=== PATIENT | male | born 1970 | race Caucasian/White ===

== ENCOUNTER 2019-01-25 00:59 | Inpatient (IN) | payer OTHER ==
[~2019-01-25] VITALS: Ht 172.7 cm; Wt 108.9 kg
[~2019-01-25 00:59] MED LIST: Lasix40 MG PO; OXYACE5T PO; Pedi-Dri 100,0060 GM TOP
[2019-01-25 03:08] LABS: BASOPHILS ABSOLUTE AUTO 0.05 K/mm3 (0.00-0.23); BASOPHILS PERCENT AUTO 0 % (0-2); EOSINOPHILS ABSOLUTE AUTO 0.06 K/mm3 (0.00-0.68); EOSINOPHILS PERCENT AUTO 0 % (0-6); Hematocrit 45.4 % (37.0-53.0); Hemoglobin 14.6 g/dL (13.5-17.5); IMMATURE GRAN ABSOLUTE AUTO 0.05 K/mm3 (0.00-0.10); IMMATURE GRAN PERCENT AUTO 0 % (0-1); LYMPHOCYTES ABSOLUTE AUTO 1.18 K/mm3 (0.84-5.20); LYMPHOCYTES PERCENT AUTO 8 % (21-46); MONOCYTES ABSOLUTE AUTO 1.22 K/mm3 (0.16-1.47); MONOCYTES PERCENT AUTO 8 % (4-13); Mean Corpuscular HGB 27.8 pg (26.0-34.0); Mean Corpuscular HGB Conc 32.2 g/dL (31.5-36.5); Mean Corpuscular Volume 87 fL (80-100); Mean Platelet Volume 10.6 fL (9.1-12.4); NEUTROPHILS ABSOLUTE AUTO 13.23 K/mm3 (1.96-9.15); NEUTROPHILS PERCENT AUTO 84 % (41-73); Platelet Count 444 K/mm3 (150-400); RDW Coefficient Variation 16.4 % (11.7-14.2); RDW Standard Deviation 51.1 fL (35.1-46.3); Red Blood Cell Count 5.25 M/mm3 (4.30-5.90); White Blood Cell Count 15.79 K/mm3 (4.00-11.30)
[2019-01-25 03:26] LABS: Albumin/Globulin Ratio 0.2 (0.8-1.8); Bilirubin, Total 0.2 mg/dL (0.1-1.0); Bun/Creatinine Ratio 14.6 (12.0-20.0); Calcium, Blood 7.8 mg/dL (8.5-10.1); Creatinine, Blood 4.19 mg/dL (0.60-1.20); Globulin, Blood 4.5 g/dL (2.2-4.0); Potassium, Blood 2.8 mmol/L (3.5-5.5); Total Protein, Blood 5.5 g/dL (6.4-8.2)
[2019-01-25 03:59] LABS: Source, Urine Voided
[2019-01-25 04:01] LABS: Bilirubin, Urine Neg (Neg); Blood, Urine 5+ (Neg); Glucose Qualitative, Urine 2+ (Neg); Ketones, Urine 3+ (Neg); Leukocyte Esterase, Urine Neg (Neg); Nitrite, Urine Neg (Neg); Protein, Urine 4+ (Neg); Specific Gravity, Urine 1.015 (1.003-1.022); Urobilinogen, Urine NORM (Normal)
[2019-01-25 04:11] LABS: Amorphous Mod (0-Heavy); Appearance, Urine Hazy (Clear); Bacteria Rare /hpf; Color, Urine Yellow (P-Yellow); Squamous Epithelial Cells Few /hpf (Few)
[2019-01-25 11:17] LABS: CPK Creatine Kinase 751 U/L (39-308); Troponin I <0.015 ng/mL (0.000-0.040); Uric Acid, Blood 8.9 mg/dL (3.5-7.2)
[2019-01-25 11:33] LABS: Creatine Kinase MB Index 2.4 (0.0-4.0)
--- NOTE | 2019-01-25 11:34 | NUR ---
ECHOCARDIOGRAM COMPLETED
[2019-01-25] MEDS ORDERED: FURO40 PO (12:41)
[2019-01-25] MEDS ORDERED: Pedi-Dri 100,0060 GM TOP (12:41)
--- NOTE | 2019-01-25 16:21 | NUR ---
PT ADMITTED TO ROOM 324 AT 1600 FROM ED. PT AMBULATED SBA TO STRETCHER. HAS ROSAS CATHITER. TOLERATING FLUIDS. GROSS BODY EDEMA +3. ORIENTED TO ROOM SET UP AND SAFETY. RENAL U.S. PERFORMED SOON AFTER PT ARRIVED TO ROOM.
[2019-01-25 19:05] LABS: Bun/Creatinine Ratio 15.2 (12.0-20.0); Calcium, Blood 7.6 mg/dL (8.5-10.1); Creatinine, Blood 4.09 mg/dL (0.60-1.20); Potassium, Blood 3.1 mmol/L (3.5-5.5)
--- NOTE | 2019-01-25 19:48 | NUR ---
SUMMARY- PT A/O IN BED THIS SHIFT SINCE ADMIT FROM ED. DENIES PAIN ANYWHERE. EXCEPT SORE GROIN FORM YEASTY RASH. CLEANSED AREA AND APPLIED NYSTATIN POWDER. PT TOLERATED DINNER AND TAKING IN PO FLUIDS WITHOUT TROUBLE. ROSAS PATENT, DRAINING CLEAR YELLOW. STARTED 24HR UUN 1600. IVF INFUSING. RENAL U.S. COMPLETED AT BEDSIDE. VSS. RERORTED ALL TO [facility].
--- NOTE | 2019-01-26 04:47 | NUR ---
SHIFT SUMMARY PT HAD SLEEP STUDY TONIGHT PER RT, SLEPT OFF/ON THROUGH THE NIGHT. ON RA. ANASARCA, 3+ EDEMA T/O. SCROTAL SWELLING NOTED WELL. 24-HR URINE COLLECTION IN PROGRESS -- START 01/25 @ 1600, END 01/26 @ 1600. ROSAS CATH IN PLACE DRAINING CLEAR YELLOW URINE; BAG ON ICE. NS c 20 MEQ K+ INFUSING OVERNIGHT; 1L BAG COMPLETE THIS AM. PT DENIES ANY PAIN, DISCOMFORT, ANXIETY, N/V. WILL CONT TO MONITOR AND PROVIDE CARE UNTIL PRESUMED BY ONCOMING RN.
[2019-01-26 05:46] LABS: BASOPHILS ABSOLUTE AUTO 0.06 K/mm3 (0.00-0.23); BASOPHILS PERCENT AUTO 1 % (0-2); EOSINOPHILS ABSOLUTE AUTO 0.47 K/mm3 (0.00-0.68); EOSINOPHILS PERCENT AUTO 4 % (0-6); Hematocrit 40.7 % (37.0-53.0); Hemoglobin 12.9 g/dL (13.5-17.5); IMMATURE GRAN ABSOLUTE AUTO 0.04 K/mm3 (0.00-0.10); IMMATURE GRAN PERCENT AUTO 0 % (0-1); LYMPHOCYTES ABSOLUTE AUTO 2.51 K/mm3 (0.84-5.20); LYMPHOCYTES PERCENT AUTO 20 % (21-46); MONOCYTES ABSOLUTE AUTO 1.24 K/mm3 (0.16-1.47); MONOCYTES PERCENT AUTO 10 % (4-13); Mean Corpuscular HGB 27.3 pg (26.0-34.0); Mean Corpuscular HGB Conc 31.7 g/dL (31.5-36.5); Mean Corpuscular Volume 86 fL (80-100); Mean Platelet Volume 10.6 fL (9.1-12.4); NEUTROPHILS ABSOLUTE AUTO 8.24 K/mm3 (1.96-9.15); NEUTROPHILS PERCENT AUTO 66 % (41-73); Platelet Count 398 K/mm3 (150-400); RDW Coefficient Variation 16.5 % (11.7-14.2); RDW Standard Deviation 51.5 fL (35.1-46.3); Red Blood Cell Count 4.73 M/mm3 (4.30-5.90); White Blood Cell Count 12.56 K/mm3 (4.00-11.30)
[2019-01-26 06:11] LABS: Albumin, Blood 0.9 g/dL (3.4-5.0); Anion Gap 12 mmol/L (6-16); Blood Urea Nitrogen 62 mg/dL (8-24); Bun/Creatinine Ratio 15.7 (12.0-20.0); CO2, Blood 19 mmol/L (21-32); Calcium, Blood 7.6 mg/dL (8.5-10.1); Chloride, Blood 112 mmol/L (98-108); Creatinine, Blood 3.96 mg/dL (0.60-1.20); Glomerular Filtration Rate 17 (60-); Glucose, Blood 81 mg/dL (70-99); Potassium, Blood 3.2 mmol/L (3.5-5.5); Sodium, Blood 143 mmol/L (136-145); Troponin I 0.016 ng/mL (0.000-0.040)
[2019-01-26 06:20] LABS: Phosphorus, Blood 8.2 mg/dL (2.5-4.9)
[2019-01-26 12:14] LABS: Antinuclear Antibody Screen Negative (Negative)
[2019-01-26 17:13] LABS: Protein, Urine Quantitative 1050.2 mg/dL (0.0-11.9)
[2019-01-26 17:51] LABS: Eosinophils-Raw #,Urine 0; White Blood Cells Urine 25-50 /hpf (0-5)
--- NOTE | 2019-01-26 17:51 | NUR ---
SHIFT SUMMARY PT CONTINUES TO HAVE SWELLING THROUGH OUT BODY. ROSAS PATENT AND DRAINING. 24 HOUR URINE FINISHED AT 1600 AND WAS SENT TO LAB. PT HAS HAD NO COMPLAINTS OF PAIN. APPETITE HAS BEEN GOOD, WITH PT EATING ALL OF MEALS. DR. LIPSCOMB COVERING FOR DR. MANSFIELD. NO ACUTE CHANGES THIS SHIFT. CALL LIGHT IN REACH. WILL CONTINUE TO MONITOR AND REPORT TO ONCOMING RN.
--- NOTE | 2019-01-27 04:43 | NUR ---
SHIFT SUMMARY NO ACUTE CHANGES OVERNIGHT. PT WITH GENERALIZED EDEMA T/O BODY, 3+. R ARM IS MORE SWOLLEN THAN LEFT. NO REDNESS OR PAIN NOTED TO R ARM. SCROTUM ALSO SWOLLEN, IN PILLOWCASE SLING FOR COMFORT. PT REPORTS FEELING A LITTLE BIT LESS EDEMATOUS THIS EVENING C/T YESTERDAY EVENING. ROSAS CATH IN PLACE FOR STRICT I/O, PATENT AND DRAINING CLEAR YELLOW URINE. VSS. PT DENIES ANY PAIN, DISCOMFORT, N/V. WILL CONT TO MONITOR AND PROVIDE CARE UNTIL PRESUMED BY ONCOMING RN.
[2019-01-27 04:52] LABS: BASOPHILS ABSOLUTE AUTO 0.06 K/mm3 (0.00-0.23); BASOPHILS PERCENT AUTO 1 % (0-2); EOSINOPHILS ABSOLUTE AUTO 0.58 K/mm3 (0.00-0.68); EOSINOPHILS PERCENT AUTO 5 % (0-6); Hemoglobin 12.3 g/dL (13.5-17.5); IMMATURE GRAN ABSOLUTE AUTO 0.05 K/mm3 (0.00-0.10); IMMATURE GRAN PERCENT AUTO 0 % (0-1); LYMPHOCYTES ABSOLUTE AUTO 2.27 K/mm3 (0.84-5.20); LYMPHOCYTES PERCENT AUTO 20 % (21-46); MONOCYTES PERCENT AUTO 11 % (4-13); Mean Corpuscular HGB Conc 31.5 g/dL (31.5-36.5); NEUTROPHILS ABSOLUTE AUTO 7.23 K/mm3 (1.96-9.15); NEUTROPHILS PERCENT AUTO 64 % (41-73); Platelet Count 376 K/mm3 (150-400); RDW Coefficient Variation 16.2 % (11.7-14.2); RDW Standard Deviation 53.2 fL (35.1-46.3); Red Blood Cell Count 4.39 M/mm3 (4.30-5.90); White Blood Cell Count 11.39 K/mm3 (4.00-11.30)
[2019-01-27 04:53] LABS: Mean Corpuscular Volume 89 fL (80-100)
[2019-01-27 05:07] LABS: Albumin, Blood 0.8 g/dL (3.4-5.0); Anion Gap 10 mmol/L (6-16); Blood Urea Nitrogen 57 mg/dL (8-24); Bun/Creatinine Ratio 15.8 (12.0-20.0); CO2, Blood 19 mmol/L (21-32); Calcium, Blood 7.6 mg/dL (8.5-10.1); Chloride, Blood 113 mmol/L (98-108); Glomerular Filtration Rate 19 (60-); Glucose, Blood 84 mg/dL (70-99); Phosphorus, Blood 6.6 mg/dL (2.5-4.9); Potassium, Blood 3.3 mmol/L (3.5-5.5); Sodium, Blood 142 mmol/L (136-145)
[2019-01-27 10:07] LABS: COMPLEMENT C3, SERUM 165 mg/dL (82-167); COMPLEMENT C4, SERUM 43 mg/dL (14-44)
--- NOTE | 2019-01-27 15:24 | NUR ---
Jose was alone in room and welcoming of spiritual direction and prayer. He admits he is worried about his kidneys. He blames himself for continuing with a diet that was against physician recomendations. He is very grateful for conversation and companionship. Provided evp general counsel towards self-forgiveness and a deeper awareness of God's boundless love for him. We prayed together at conclusion of visit for healing and strength. I will remain available to Jose.
--- NOTE | 2019-01-27 18:44 | NUR ---
SHIFT SUMMARY ROSAS IN PLACE. IV LASIX ORDERED. RENAL MASS FOUND. FUTURE PLAN IS FOR OUTPT BIOPSY FOLLOWING A UROLOGY CONSULT WHEN RENAL FUNCTION IMPROVES. SCROTAL EDEMA PRESENT. SOME COGNITIVE DELAY PRESENT, HOWEVER PT CAN EXPRESS NEEDS PERFECTLY. DR LIPSCOMB IS CONSULT. 1500 ML FLUID RESTRICTION STARTED TODAY. ELEVATE LEGS. SCD'S IN PLACE TRACY HOSE WERE UNABLE TO BE FITTED.
--- NOTE | 2019-01-27 20:28 | NUR ---
FLUID RESTRICTION OF 1500 ML MET UNTIL O600. PT AWARE.
[2019-01-28 05:20] LABS: BASOPHILS ABSOLUTE AUTO 0.07 K/mm3 (0.00-0.23); BASOPHILS PERCENT AUTO 1 % (0-2); EOSINOPHILS PERCENT AUTO 5 % (0-6); Hematocrit 39.1 % (37.0-53.0); Hemoglobin 12.1 g/dL (13.5-17.5); IMMATURE GRAN ABSOLUTE AUTO 0.04 K/mm3 (0.00-0.10); IMMATURE GRAN PERCENT AUTO 0 % (0-1); LYMPHOCYTES ABSOLUTE AUTO 2.51 K/mm3 (0.84-5.20); LYMPHOCYTES PERCENT AUTO 18 % (21-46); MONOCYTES ABSOLUTE AUTO 1.26 K/mm3 (0.16-1.47); MONOCYTES PERCENT AUTO 9 % (4-13); Mean Corpuscular HGB 27.3 pg (26.0-34.0); Mean Corpuscular HGB Conc 30.9 g/dL (31.5-36.5); Mean Corpuscular Volume 88 fL (80-100); Mean Platelet Volume 11.4 fL (9.1-12.4); NEUTROPHILS ABSOLUTE AUTO 9.24 K/mm3 (1.96-9.15); NEUTROPHILS PERCENT AUTO 67 % (41-73); Platelet Count 349 K/mm3 (150-400); RDW Coefficient Variation 16.4 % (11.7-14.2); Red Blood Cell Count 4.44 M/mm3 (4.30-5.90); White Blood Cell Count 13.82 K/mm3 (4.00-11.30)
[2019-01-28 05:45] LABS: Albumin, Blood 0.8 g/dL (3.4-5.0); Anion Gap 8 mmol/L (6-16); Blood Urea Nitrogen 53 mg/dL (8-24); Bun/Creatinine Ratio 16.5 (12.0-20.0); CO2, Blood 20 mmol/L (21-32); Calcium, Blood 7.8 mg/dL (8.5-10.1); Chloride, Blood 114 mmol/L (98-108); Creatinine, Blood 3.21 mg/dL (0.60-1.20); Glomerular Filtration Rate 22 (60-); Glucose, Blood 82 mg/dL (70-99); Magnesium, Blood 1.7 mg/dL (1.6-2.4); Phosphorus, Blood 5.6 mg/dL (2.5-4.9); Potassium, Blood 3.8 mmol/L (3.5-5.5); Sodium, Blood 142 mmol/L (136-145)
--- NOTE | 2019-01-28 05:45 | NUR ---
SHIFT SUMMARY PT WITH NO ACUTE CHANGES OVERNIGHT. SLEPT WELL THROUGH THE NIGHT. C/O OF L KNEE PAIN THAT WAS MANAGED WITH REPOSITIONING. 1500 ML FR MET, RESTARTS AT 0600. PT COMPLIANT AND UNDERSTANDING OF FR. RESP E/U ON RA. ORAL K+ SUPPLEMENTS DISSOLVED IN APPLESAUCE FOR PT COMFORT. ROSAS CATH IN PLACE FOR STRICT I/Os, PATENT AND DRAINING CLEAR YELLOW URINE. WILL CONT TO MONITOR AND PROVIDE CARE UNTIL PRESUMED BY ONCOMING RN.
[2019-01-28 14:07] LABS: ATYPICAL PANCA <1:20 titer (Neg:<1:20); CYTOPLASMIC (C-ANCA) <1:20 titer (Neg:<1:20); PERINUCLEAR (P-ANCA) <1:20 titer (Neg:<1:20)
[2019-01-28 15:07] LABS: A/G RATIO 0.5 (0.7-1.7); ALBUMIN 1.2 g/dL (2.9-4.4); ALPHA-1-GLOBULIN 0.2 g/dL (0.0-0.4); ALPHA-2-GLOBULIN 1.3 g/dL (0.4-1.0); BETA GLOBULIN 0.6 g/dL (0.7-1.3); GAMMA GLOBULIN 0.4 g/dL (0.4-1.8); GLOBULIN, TOTAL 2.5 g/dL (2.2-3.9); IMMUNOGLOBULIN A, QN, SERUM 157 mg/dL (90-386); IMMUNOGLOBULIN G, QN, SERUM 279 mg/dL (700-1600); IMMUNOGLOBULIN M, QN, SERUM 44 mg/dL (20-172); M-SPIKE Not Observed g/dL (Not Observed); PROTEIN, TOTAL, SERUM 3.7 g/dL (6.0-8.5)
--- NOTE | 2019-01-28 18:13 | NUR ---
PT A/O THROUGHOUT THIS SHIFT. PT UP TO BEDSIDE COMODE 2X THIS SHIFT, 2 PERSON ASSIST REQUIRED. PT COOPERATIVE WITH CARE. PT STATES NO ADDITIONAL NEEDS. WILL CONTINUE TO MONITOR.
--- NOTE | 2019-01-28 18:43 | NUR ---
Provided companionship and prayer for Jose this afternoon. He appeared to enjoy telling me stories from his childhood and sharyn sharing. I will remain available.
--- NOTE | 2019-01-29 05:00 | NUR ---
SHIFT SUMMARY NO ACUTE EVENTS OVERNIGHT. PT TO HAVE MRI W/O CONTRAST TODAY, MRI FORM SENT. 1.5 L FR MAINTAINED. ROSAS IN PLACE FOR STRICT I/O, DRAINING CLEAR YELLOW URINE. DENIES PAIN. BLE ELEVATED. SWELLING HAS IMPROVED SLOWLY OVER THE LAST FEW DAYS. WILL CONT TO MONITOR AND PROVIDE CARE UNTIL PRESUMED BY ONCCOMING RN.
[2019-01-29 05:28] LABS: Hematocrit 41.3 % (37.0-53.0); Hemoglobin 13.3 g/dL (13.5-17.5)
[2019-01-29 05:48] LABS: Albumin, Blood 0.9 g/dL (3.4-5.0); Anion Gap 10 mmol/L (6-16); Blood Urea Nitrogen 50 mg/dL (8-24); Bun/Creatinine Ratio 16.9 (12.0-20.0); CO2, Blood 19 mmol/L (21-32); Chloride, Blood 115 mmol/L (98-108); Creatinine, Blood 2.95 mg/dL (0.60-1.20); Glomerular Filtration Rate 24 (60-); Glucose, Blood 80 mg/dL (70-99); Magnesium, Blood 1.7 mg/dL (1.6-2.4); Potassium, Blood 4.7 mmol/L (3.5-5.5); Sodium, Blood 144 mmol/L (136-145)
[2019-01-29 13:08] LABS: ANTI-DSDNA ANTIBODIES <1 IU/mL (0-9); RNP ANTIBODIES <0.2 AI (0.0-0.9); SJOGREN'S ANTI-SS-A <0.2 AI (0.0-0.9); SJOGREN'S ANTI-SS-B <0.2 AI (0.0-0.9); SMITH ANTIBODIES <0.2 AI (0.0-0.9)
--- NOTE | 2019-01-29 18:40 | NUR ---
SHIFT SUMMARY NO ACUTE CHANGES THIS SHIFT. PT WAS UNABLE TO HAVE MRI DONE THIS SHIFT DUE TO NOT BEING ABLE TO FIT IN MRI MACHINE. NO COMPLAINTS OF PAIN. ROSAS PATENT AND DRAINING. PT CONTINUES TO HAVE SWELLING THROUGH OUT BODY AND SCROTUM. PT HAS HAD GOOD APPETITE. NO REQUESTS AT THIS TIME. CALL LIGHT IN REACH. WILL CONTINUE TO MONITOR AND REPORT TO ONCOMING RN.
--- NOTE | 2019-01-30 04:56 | NUR ---
SHIFT SUMMARY: 48 Y/O MALE, 1 PERSON ASSIST TO BSC. SLEPT MOST OF THE NIGHT WITH LITTLE COMPLAINTS OR CONCERNS. HE TOOK HIS MEDS PRESCRIBED. SWELLING HAS REMAINED THE SAME THROUGHOUT THE BODY. HE HAS DENIED PAIN OR DISCOMFORT. IV HAS REMAINED PATENT. NO ACUTE CHANGES TO NOTE OR REPORT. WILL REPORT TO DAY SHIFT RN.
[2019-01-30 05:18] LABS: Hematocrit 43.2 % (37.0-53.0)
[2019-01-30 05:50] LABS: Magnesium, Blood 1.6 mg/dL (1.6-2.4)
[2019-01-30 05:52] LABS: Albumin, Blood 0.8 g/dL (3.4-5.0); Anion Gap 6 mmol/L (6-16); Blood Urea Nitrogen 47 mg/dL (8-24); Bun/Creatinine Ratio 16.7 (12.0-20.0); CO2, Blood 20 mmol/L (21-32); Calcium, Blood 8.2 mg/dL (8.5-10.1); Chloride, Blood 118 mmol/L (98-108); Creatinine, Blood 2.82 mg/dL (0.60-1.20); Glomerular Filtration Rate 25 (60-); Glucose, Blood 81 mg/dL (70-99); Phosphorus, Blood 4.7 mg/dL (2.5-4.9); Potassium, Blood 4.5 mmol/L (3.5-5.5); Sodium, Blood 144 mmol/L (136-145)
[2019-01-30 10:45] LABS: Prothrombin Time Results 10.6 Sec (9.7-11.5)
--- NOTE | 2019-01-30 18:40 | NUR ---
SHIFT SUMMARY NO ACUTE CONCERNS HE IS PLEASANT. ONE PERSON ASSIST LONG HE IS APPROPRIATE. HE HAS BEEN APPROPRIATE WITH ME ALL DAY. NO CONCERNS FROM THE PATIENT AND HE STATES HE IS GETTING MUCH BETTER. WE ARE AWAITING A BIOPSY ON SATURDAY.
[2019-01-31 05:10] LABS: BASOPHILS ABSOLUTE AUTO 0.07 K/mm3 (0.00-0.23); BASOPHILS PERCENT AUTO 1 % (0-2); EOSINOPHILS ABSOLUTE AUTO 0.73 K/mm3 (0.00-0.68); EOSINOPHILS PERCENT AUTO 7 % (0-6); Hematocrit 42.6 % (37.0-53.0); Hemoglobin 12.8 g/dL (13.5-17.5); IMMATURE GRAN ABSOLUTE AUTO 0.06 K/mm3 (0.00-0.10); IMMATURE GRAN PERCENT AUTO 1 % (0-1); LYMPHOCYTES ABSOLUTE AUTO 1.82 K/mm3 (0.84-5.20); LYMPHOCYTES PERCENT AUTO 17 % (21-46); MONOCYTES ABSOLUTE AUTO 1.29 K/mm3 (0.16-1.47); MONOCYTES PERCENT AUTO 12 % (4-13); Mean Corpuscular HGB 27.4 pg (26.0-34.0); Mean Platelet Volume 11.1 fL (9.1-12.4); NEUTROPHILS ABSOLUTE AUTO 7.03 K/mm3 (1.96-9.15); NEUTROPHILS PERCENT AUTO 64 % (41-73); Platelet Count 354 K/mm3 (150-400); RDW Coefficient Variation 16.9 % (11.7-14.2); RDW Standard Deviation 56.3 fL (35.1-46.3); Red Blood Cell Count 4.68 M/mm3 (4.30-5.90)
[2019-01-31 05:14] LABS: Mean Corpuscular Volume 91 fL (80-100)
[2019-01-31 05:35] LABS: Magnesium, Blood 1.7 mg/dL (1.6-2.4)
[2019-01-31 05:36] LABS: Albumin, Blood 0.8 g/dL (3.4-5.0); Anion Gap 5 mmol/L (6-16); Blood Urea Nitrogen 43 mg/dL (8-24); Bun/Creatinine Ratio 15.5 (12.0-20.0); CO2, Blood 20 mmol/L (21-32); Calcium, Blood 8.2 mg/dL (8.5-10.1); Chloride, Blood 120 mmol/L (98-108); Creatinine, Blood 2.78 mg/dL (0.60-1.20); Glomerular Filtration Rate 26 (60-); Glucose, Blood 90 mg/dL (70-99); Phosphorus, Blood 4.4 mg/dL (2.5-4.9); Sodium, Blood 145 mmol/L (136-145)
--- NOTE | 2019-01-31 05:49 | NUR ---
SHIFT SUMMARY: 48 Y/O MALE HERE FOR ANASARCA. HAS HAD A DECREASE IN OVERALL EDEMA. HE STATES HE FEELS HE IS GETTING BETTER. HE SLEPT THROUGHOUT THE NIGHT TILL LAB WOKE HIM UP. HE DENIED ANY PAIN OR DISCOMFORT THIS SHIFT. NO ACUTE CHANGES OCCURRED THIS SHIFT. WILL REPORT TO DAY SHIFT RN.
--- NOTE | 2019-01-31 18:24 | NUR ---
SHIFT SUMMARY PATIENT IS ALERT AND ORIENTED AND VERY PLEASANT. HAS BEEN MOVING AROUND ALMOST INDEPENDENTLY. HE HAS NO CURRENT CONCERNS MINUS HIS CURRENT SCROTAL SWELLING.
[2019-02-01 05:00] LABS: Hematocrit 43.1 % (37.0-53.0); Hemoglobin 12.7 g/dL (13.5-17.5)
[2019-02-01 05:19] LABS: Albumin, Blood 0.8 g/dL (3.4-5.0); Anion Gap 5 mmol/L (6-16); Blood Urea Nitrogen 43 mg/dL (8-24); Bun/Creatinine Ratio 16.3 (12.0-20.0); CO2, Blood 20 mmol/L (21-32); Calcium, Blood 8.3 mg/dL (8.5-10.1); Chloride, Blood 119 mmol/L (98-108); Creatinine, Blood 2.63 mg/dL (0.60-1.20); Glomerular Filtration Rate 28 (60-); Glucose, Blood 101 mg/dL (70-99); Magnesium, Blood 1.7 mg/dL (1.6-2.4); Phosphorus, Blood 4.4 mg/dL (2.5-4.9); Sodium, Blood 144 mmol/L (136-145)
--- NOTE | 2019-02-01 05:45 | NUR ---
SHIFT SUMMARY NO ASSESSMENT CHANGES. DENIES SOB, PAIN, AND NAUSEA. WITHIN FLUID RESTRICTION. EDEMA REMAINS UNCHANGED OVERNIGHT. ROSAS CLEAR YELLOW. VSS. PLAN IS RENAL BIOPSY SATURDAY.
--- NOTE | 2019-02-01 17:55 | NUR ---
SHIFT SUMMARY NO ACUTE CONCERNS AT THIS TIME. PATIENT IS ALERT AND ORIENTED AND CAN WALK WITH STANDBY ASSIST. CURRENTLY HE IS ABLE TO BE UP IN THE CHAIR FOR MEALS AND HAS NO CURRENT CONCERNS. HE GOES FOR A RENAL BIOPSY TOMORROW. HE IS TO BE NPO AT MIDNIGHT AND TO HAVE HIS SATURDAY MORNING DOSE OF HEPARIN HELD. PATIENT IS AWARE OF THIS AND IS VERY PLEASANT ABOUT IT.
[2019-02-02 05:05] LABS: Hematocrit 44.6 % (37.0-53.0); Hemoglobin 13.3 g/dL (13.5-17.5)
[2019-02-02 05:20] LABS: International Normalized Ratio 0.97; Prothrombin Time Results 10.3 Sec (9.7-11.5)
[2019-02-02 05:26] LABS: Magnesium, Blood 1.8 mg/dL (1.6-2.4)
[2019-02-02 05:27] LABS: Albumin, Blood 0.9 g/dL (3.4-5.0); Anion Gap 5 mmol/L (6-16); Blood Urea Nitrogen 43 mg/dL (8-24); CO2, Blood 19 mmol/L (21-32); Calcium, Blood 8.4 mg/dL (8.5-10.1); Chloride, Blood 119 mmol/L (98-108); Creatinine, Blood 2.68 mg/dL (0.60-1.20); Glomerular Filtration Rate 27 (60-); Glucose, Blood 92 mg/dL (70-99); Phosphorus, Blood 4.2 mg/dL (2.5-4.9); Potassium, Blood 5.2 mmol/L (3.5-5.5); Sodium, Blood 143 mmol/L (136-145)
--- NOTE | 2019-02-02 06:36 | NUR ---
SHIFT SUMMARY NO ACUTE CHANGES OVERNIGHT. PT NPO SINCE MIDNIGHT FOR RENAL BIOPSY TODAY. PM HEPARIN INJECTION HELD; TO BE HELD THIS AM TOO; WILL PASS OFF IN REPORT. PT WITH 1+ EDEMA T/O BODY, HAS IMPROVED SIGNIFICANTLY. TELE IN PLACE IS PATENT AND DRAINING CLEAR YELLOW URINE. STRICT I/O; 1500 ML FR. WILL CONT TO MONITOR AND PROVIDE CARE UNTIL PRESUMED BY ONCOMING RN.
[2019-02-02 10:07] LABS: ALDOS/RENIN RATIO 6.6 (0.0-30.0); ALDOSTERONE 3.8 ng/dL (0.0-30.0)
--- NOTE | 2019-02-02 15:34 | NUR ---
SUMMARY PT IS A/O X4, PLEASANT AFFECT. HE IS 1 ASSIST UP TO CHAIR. BLE, RUE, SCROTUM, ABD CONTINUE EDEMATOUS. BLE 2-3+. DX RENAL FAILURE, GFR 27, DR MANSFIELD MANAGING. IV LASIX CONTINUES, FR 1.5L/DAY, ROSAS CATH FOR STRICT I&O'S. PT STATE EDEMA IMPROVING SOMEWHAT. HE HAD L RENAL BIOPSY TODAY FOLLOWED BY CT ABD. RENAL, LOW NA+ DIET RESTARTED AFTER PROCEDURES. BP SOMEWHAT ELEVATED, DR INCREASE CLONIDINE TO TID, VSS.
--- NOTE | 2019-02-02 16:37 | NUR ---
Spiritual Care routine visit: Charly was subdued today. He is awaiting results of his biopsy from this AM. He was appreciaitve of prayer and conversation. I will continue to visit Charly as case-load permits.
[2019-02-03 05:32] LABS: Hematocrit 43.6 % (37.0-53.0)
[2019-02-03 05:47] LABS: Albumin, Blood 0.9 g/dL (3.4-5.0); Anion Gap 5 mmol/L (6-16); Blood Urea Nitrogen 44 mg/dL (8-24); CO2, Blood 19 mmol/L (21-32); Calcium, Blood 8.3 mg/dL (8.5-10.1); Chloride, Blood 119 mmol/L (98-108); Creatinine, Blood 2.93 mg/dL (0.60-1.20); Glomerular Filtration Rate 24 (60-); Glucose, Blood 80 mg/dL (70-99); Magnesium, Blood 1.8 mg/dL (1.6-2.4); Phosphorus, Blood 4.6 mg/dL (2.5-4.9); Potassium, Blood 5.4 mmol/L (3.5-5.5); Sodium, Blood 143 mmol/L (136-145)
--- NOTE | 2019-02-03 06:17 | NUR ---
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 PT AAOX4 AND PLEASANT. STANDBY ASSIST TO THE BATHROOM. PT STILL VERY SWOLLEN ON BLE AND TESTICLES. PT DOES REPORT THAT SWELLING IS IMPROVING COMPARED TO WHEN HE FIRST CAME TO THE FLOOR. DENIES PAIN, SOB, N/V. HAS RESTED MOST OF THE NIGHT. VSS, WILL CONTINUE TO MONITOR.
--- NOTE | 2019-02-03 18:38 | NUR ---
SUMMARY PT IS A/O X4 T/O DAY, PLEASANT/COOPERTIVE. ANASARCA CONTINUES, BLE 3-4+, RUE 3+, SCROTUM CONTINUES EDEMATOUS. DIFFICULT FOR PT TO AMBULATE D/T EDEMA, 1 ASSIST W FWW. GFR 24. DR MANSFIELD ADJUST IV LASIX DOSE. FL REST CONTINUES. ASSISTED HIM TO SHOWER TODAY, NYSTATIN TO BEBETO/GROIN RASH. BP ELEVATED THIS AM HOWEVER IMPROVED THIS AFTERNOON, 149/87, VSS.
--- NOTE | 2019-02-03 18:44 | NUR ---
NEW ER ADMIT THIS AFTERNOON. DX COPD EXAC. ON ARRIVAL TO ROOM PT IS SHORT OF BREATH, LUNGS COARSE w RHONCHI & EXP WHEEZE, BIOX 87%, PLACED HIM ON 2L O2, BIOX IMPROVE TO 90-92%, RT IN TO ASSESS, PROVIDE NEB TX. IV SOLUMEDROL 60MG GIVEN. PT CONTINUES SOB HOWEVER STATE IMPROVED. IV NS INFUSING @ 125 ML/HR X 1LITER, LACTIC ACID 2.0. PT IS A/O X4, PLEASANT/COOPERATIVE, STATE AMBULATES W FWW. SITTING UP IN BED FOR DINNER, GOOD APPETITE, EAT 100%, SOUND ASLEEP @ SHIFT CHANGE BREATHING UNLABORED.
[2019-02-04 05:54] LABS: Hematocrit 43.6 % (37.0-53.0)
[2019-02-04 06:11] LABS: Albumin, Blood 0.9 g/dL (3.4-5.0); Anion Gap 7 mmol/L (6-16); Blood Urea Nitrogen 43 mg/dL (8-24); Bun/Creatinine Ratio 15.9 (12.0-20.0); CO2, Blood 19 mmol/L (21-32); Calcium, Blood 8.1 mg/dL (8.5-10.1); Chloride, Blood 117 mmol/L (98-108); Creatinine, Blood 2.71 mg/dL (0.60-1.20); Glomerular Filtration Rate 27 (60-); Glucose, Blood 80 mg/dL (70-99); Magnesium, Blood 1.7 mg/dL (1.6-2.4); Phosphorus, Blood 4.4 mg/dL (2.5-4.9); Sodium, Blood 143 mmol/L (136-145)
--- NOTE | 2019-02-04 07:12 | NUR ---
no acute changes to report. patient continues to diurese well, and had good output on the NOC shift. he had no complaint of pain, nausea or SOB. generalized and b/l LE edema as well as scrotal edema remain present.
--- NOTE | 2019-02-04 19:09 | NUR ---
PT. LYING QUIETLY WATCHING T.V. NO REPORT OF PAIN OR NAUSEA T/O THE SHIFT.
--- NOTE | 2019-02-05 04:04 | NUR ---
SHIFT SUMMARY PATIENT HAS BEEN RESTING IN BED ALL NIGHT ASIDE FROM GETTING UP TO USE THE RESTROOM. 1800 ML OUT FROM ROSAS. ROSAS IS PATENT AND FLOWING FREELY. PATIENT CALLS APPROPRIATELY AND IS A&O. CALL LIGHT AND BELONGINGS WITHIN REACH. BED BREAKS IN THE ON POSITION. IV SITE IS SALINE LOCKED. WCTM. REPORT GIVEN TO ONCOMING RN.
[2019-02-05 05:12] LABS: Hematocrit 41.8 % (37.0-53.0); Hemoglobin 12.9 g/dL (13.5-17.5)
[2019-02-05 05:42] LABS: Magnesium, Blood 1.6 mg/dL (1.6-2.4)
[2019-02-05 05:45] LABS: Albumin, Blood 0.8 g/dL (3.4-5.0); Anion Gap 8 mmol/L (6-16); Blood Urea Nitrogen 42 mg/dL (8-24); Bun/Creatinine Ratio 15.3 (12.0-20.0); CO2, Blood 18 mmol/L (21-32); Calcium, Blood 8.1 mg/dL (8.5-10.1); Chloride, Blood 115 mmol/L (98-108); Creatinine, Blood 2.74 mg/dL (0.60-1.20); Glomerular Filtration Rate 26 (60-); Glucose, Blood 93 mg/dL (70-99); Phosphorus, Blood 4.3 mg/dL (2.5-4.9); Potassium, Blood 4.6 mmol/L (3.5-5.5); Sodium, Blood 141 mmol/L (136-145)
--- NOTE | 2019-02-05 17:35 | NUR ---
SHIFT SUMMARY. A&OX3, PT IS AWARE OF LIMITATIONS AND CALLS APPROPRIATELY, NO SAFETY CONCERNS. PT DENIES PAIN, SOB, N/V. NO NEW CHANGES OR CONCERNS.
[2019-02-06 05:08] LABS: Hematocrit 37.4 % (37.0-53.0); Hemoglobin 11.3 g/dL (13.5-17.5)
[2019-02-06 05:29] LABS: Albumin, Blood 0.7 g/dL (3.4-5.0); Anion Gap 8 mmol/L (6-16); Blood Urea Nitrogen 44 mg/dL (8-24); Bun/Creatinine Ratio 15.5 (12.0-20.0); CO2, Blood 20 mmol/L (21-32); Chloride, Blood 115 mmol/L (98-108); Creatinine, Blood 2.83 mg/dL (0.60-1.20); Glomerular Filtration Rate 25 (60-); Glucose, Blood 88 mg/dL (70-99); Magnesium, Blood 1.7 mg/dL (1.6-2.4); Phosphorus, Blood 4.6 mg/dL (2.5-4.9); Sodium, Blood 143 mmol/L (136-145)
--- NOTE | 2019-02-06 06:02 | NUR ---
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 PT DENIES PAIN, SOB, N/V. EDEMA STILL PRESENT ON BLE BUT SEEMS IMPROVED. PT HAS SLEPT WELL MAJORITY OF THE SHIFT. VSS, WILL CONTINUE TO MONITOR.
[2019-02-06 07:08] LABS: HBSAG SCREEN Negative (Negative); HEP B CORE AB, TOT Negative (Negative); HEP C VIRUS AB <0.1 (0.0-0.9)
--- NOTE | 2019-02-06 18:47 | NUR ---
AOX3. AWARE AND ABLE TO MAKE NEEDS KNOWN NEEDED. ONE PERSON ASSIST WITH FWW. CONT OF BOWEL, ONE ASSIST TO BSC. ROSAS CATHETER DRAINING CLEAR YELLOW URINE WITHOUT CONCERN. BLE EDEMA CONTINUES, PATIENT ENCOURAGED TO ELEVATE EXTREMITIES. IV ACCESS TO LUE PATENT WITHOUT OBSERVABLE IV RELATED COMPLICATIONS. LUNGS CLEAR TO ALL LOBES, DENIES SOB, O2 STABLE RA. DENIES ALL PAIN AND DISCOMFORT.
[2019-02-07 05:30] LABS: Hematocrit 39.3 % (37.0-53.0); Hemoglobin 11.9 g/dL (13.5-17.5)
--- NOTE | 2019-02-07 05:40 | NUR ---
SHIFT SUMMARY PATIENT SLEPT WELL OVERNIGHT WITHOUT COMPLAINTS OF DISCOMFORT, SOB. VOIDING CLER YELLOW URINE PER ROSAS CATHETER. LOWER EXTREMITIES STILL WITH MODERATE PITTING, ABDOMEN NOT SOFT AND NON TENDER. SCROTAL AREA AND AREA AROUND PENIS STILL SWOLLEN AND UNCOMFORTABLE FOR PATIENT. BEBETO CARE GENTLY GIVEN AND NYSTATIN APPLIED TO AREAS OF YEAST.
[2019-02-07 05:49] LABS: Magnesium, Blood 1.8 mg/dL (1.6-2.4)
[2019-02-07 06:01] LABS: Albumin, Blood 0.7 g/dL (3.4-5.0); Anion Gap 8 mmol/L (6-16); Blood Urea Nitrogen 44 mg/dL (8-24); Bun/Creatinine Ratio 16.9 (12.0-20.0); CO2, Blood 18 mmol/L (21-32); Calcium, Blood 8.1 mg/dL (8.5-10.1); Chloride, Blood 115 mmol/L (98-108); Creatinine, Blood 2.61 mg/dL (0.60-1.20); Glomerular Filtration Rate 28 (60-); Glucose, Blood 85 mg/dL (70-99); Potassium, Blood 4.2 mmol/L (3.5-5.5); Sodium, Blood 141 mmol/L (136-145)
--- NOTE | 2019-02-07 17:32 | NUR ---
SUMMARY PT IS A/O X4, PLEASANT AFFECT, HE IS ABLE TO GET UP TO CHAIR W 1 ASSIST ALTHOUGH CONTINUING DIFFICULTY AMBULATING R/T SCROTAL EDEMA. HE STATE EDEMA CONTINUES TO IMPROVE, DECREASED FROM PREVIOUS DAYS. BLE EDEMA 3+, IV LASIX CONTINUES. GFR 28, DR MANSFIELD MANAGING RENAL FX. CONTINUES TO AWAIT RESULTS OF RENAL BIOPSY.
[2019-02-08 04:59] LABS: Hematocrit 38.4 % (37.0-53.0); Hemoglobin 11.7 g/dL (13.5-17.5)
[2019-02-08 05:14] LABS: Albumin, Blood 0.7 g/dL (3.4-5.0); Anion Gap 9 mmol/L (6-16); Blood Urea Nitrogen 42 mg/dL (8-24); Bun/Creatinine Ratio 15.8 (12.0-20.0); CO2, Blood 22 mmol/L (21-32); Chloride, Blood 112 mmol/L (98-108); Creatinine, Blood 2.66 mg/dL (0.60-1.20); Glomerular Filtration Rate 27 (60-); Glucose, Blood 85 mg/dL (70-99); Magnesium, Blood 1.9 mg/dL (1.6-2.4); Phosphorus, Blood 4.6 mg/dL (2.5-4.9); Potassium, Blood 3.7 mmol/L (3.5-5.5); Sodium, Blood 143 mmol/L (136-145)
--- NOTE | 2019-02-08 05:27 | NUR ---
SHIFT SUMMARY NO CHANGES THIS SHIFT. PT HAS RESTED FOR MOST OF THE NIGHT. ROSAS IN PLACE PATENT AND DRAINING. COMPLIANT WITH 1500 ML FLUID RESTRICTION. PT PLESANT WITH CARE AND MAKES NEED. ASSESSMENT UNCHANGED. WILL CONTINUE TO MONITOR AND REPORT TO ONCOMING RN.
[2019-02-08] MEDS ORDERED: CLON.1 PO (11:59)
[2019-02-08] MEDS ORDERED: DILT180 PO (12:02)
[2019-02-08] MEDS ORDERED: Bumetanide1 MG PO (12:03)
[2019-02-08] MEDS ORDERED: METO5 PO (12:03)
[2019-02-08] MEDS ORDERED: K-Dur20 MEQ PO (12:06)
[2019-02-08] MEDS ORDERED: SODBIC650 PO (12:07)
--- NOTE | 2019-02-08 14:09 | NUR ---
DISCHARGE DR MANSFIELD IN TO SEE PT THIS AM, CHANGE IV LASIX TO ORAL BUMEX, ORDER BLADDER TRAINING & D/C ROSAS CATH, STATE PT MAY D/C HOME FROM NEPHROLOGY STANDPOINT. PT STATE FEELS READY TO GO HOME. EDEMA CONTINUES HOWEVER SIGNIFICANTLY IMPROVED. DR COTTON IN TO SEE PT, STATE MAY GO HOME TODAY, PROVIDE D/C ORDERS. IV D/C INTACT. SCRIPTS FAXED TO [facility]/REQUEST. ROSAS CATH D/C'D, PT ABLE TO VOID. PHYTHER IN FOR EVAL STATE OK FOR D/C HOME. PT ASSISTED TO DRESS & GATHER BELONGINGS, DECLINES SHOWER @ THIS TIME. FRIEND IN FOR TRANSPORT HOME, PT PROVIDED W/C ESCORT FROM HOSP. HE IS PLEASANT/APPRECIATIVE.
== END 2019-02-08 14:10 | disposition home or self-care (01) | DRG 683 ==
LOC: ER 00:59 → ERHOLD 05:52 → MEDS 05:52 → ENPENDDIS 02-08 11:13 → MEDS 02-08 14:10
PROVIDERS: Emergency Medicine; Internal Medicine; Internal Medicine Gastroenterology; Internal Medicine Nephrology; ADMIT Internal Medicine
PROC: 0TB13ZX Excision of Left Kidney, Percutaneous Approach, Diagnostic (ICD-10-PCS; principal; 2019-02-02)
DX: N17.9 Acute kidney failure, unspecified (principal); E87.2 Acidosis; E87.6 Hypokalemia; B35.6 Tinea cruris; M10.9 Gout, unspecified; E66.01 Morbid (severe) obesity due to excess calories; F20.9 Schizophrenia, unspecified; F43.10 Post-traumatic stress disorder, unspecified; E83.39 Other disorders of phosphorus metabolism; E87.70 Fluid overload, unspecified; E79.0 Hyperuricemia without signs of inflammatory arthritis and tophaceous disease; N28.89 Other specified disorders of kidney and ureter; I12.9 Hypertensive chronic kidney disease with stage 1 through stage 4 chronic kidney disease, or unspecified chronic kidney disease; N18.4 Chronic kidney disease, stage 4 (severe); B37.2 Candidiasis of skin and nail; Z68.36 Body mass index [BMI] 36.0-36.9, adult
CPT/HCPCS: 36415; 50200; 51702; 51798; 71045; 74176; 76770; 76870; 77012; 80048; 80053; 80069; 81001; 81050; 82088; 82550; 82553; 82570; 82784; 83036; 83735; 83880; 84100; 84156; 84165; 84244; 84443; 84484; 84550; 85014; 85018; 85025; 85060; 85610; 85730; 86038; 86160; 86225; 86235; 86256; 86317; 86334; 86430; 86704; 86708; 86803; 87205; 87340; 88305; 88313; 88329; 88346; 88348; 88350; 93005; 93010; 93306; 94762; 96365-59; 96366-59; 96367-59; 96372-59; 96374; 96375-59; 97161; 99284-25; 99285-25; G0103; J1644; J1940; J3480

== ENCOUNTER 2022-11-02 18:05 | Inpatient (IN) | payer OTHER ==
[~2022-11-02] VITALS: Ht 172.7 cm; Wt 101.2 kg
[~2022-11-02 18:05] MED LIST changes: +Bumetanide1 MG PO; +CLON.1 PO; +DILT180 PO; +FURO40 PO; +K-Dur20 MEQ PO; +METO5 PO; +SODBIC650 PO
[2022-11-02 19:05] LABS: Hematocrit 43.7 % (37.0-53.0); Hemoglobin 14.2 g/dL (13.5-17.5); Mean Corpuscular HGB 27.6 pg (26.0-34.0); Mean Corpuscular HGB Conc 32.5 g/dL (31.5-36.5); Mean Corpuscular Volume 85 fL (80-100); Mean Platelet Volume 10.5 fL (9.1-12.4); Platelet Count 447 K/mm3 (150-400); RDW Coefficient Variation 16.1 % (11.7-14.2); RDW Standard Deviation 50.4 fL (35.1-46.3); Red Blood Cell Count 5.14 M/mm3 (4.30-5.90)
[2022-11-02 19:21] LABS: Albumin, Blood 2.4 g/dL (3.4-5.0); Albumin/Globulin Ratio 0.5 (0.8-1.8); Bun/Creatinine Ratio 13.9 (12.0-20.0); Calcium, Blood 9.6 mg/dL (8.5-10.1); Creatinine, Blood 6.89 mg/dL (0.60-1.20); Globulin, Blood 5.2 g/dL (2.2-4.0); Potassium, Blood 3.8 mmol/L (3.5-5.5); Total Protein, Blood 7.6 g/dL (6.4-8.2)
[2022-11-02 19:27] LABS: BAND PERCENT MAN 3 % (0-8); BASOPHILS PERCENT MAN 0 % (0-2); EOSINOPHILS PERCENT MAN 0 % (0-6); LYMPHOCYTES ABSOLUTE MAN 2.41 K/mm3 (0.84-5.20); LYMPHOCYTES PERCENT MAN 6 % (21-46); MONOCYTES PERCENT MAN 2 % (4-13); MYELOCYTE PERCENT MAN 2 % (0-0); NEUTROPHILS ABSOLUTE MAN 36.18 K/mm3 (1.96-9.15); SEG NEUTROPHILS PERCENT MAN 87 % (41-73); TOTAL CELLS COUNTED 100
[2022-11-02] MEDS ORDERED: PANT40 PO (23:24)
[2022-11-02] MEDS ORDERED: LEVFLO500 PO (23:25)
[2022-11-02] MEDS ORDERED: ALLO100 PO (23:26)
[2022-11-03] VITALS (9 sets, daily range): BP systolic 150–184; BP diastolic 92–104
[2022-11-03 03:59] LABS: Hematocrit 37.6 % (37.0-53.0); Hemoglobin 12.4 g/dL (13.5-17.5)
[2022-11-03 04:27] LABS: Magnesium, Blood 2.8 mg/dL (1.6-2.4)
[2022-11-03 04:36] LABS: Albumin, Blood 1.8 g/dL (3.4-5.0); Anion Gap 17 mmol/L (6-16); Blood Urea Nitrogen 108 mg/dL (8-24); Bun/Creatinine Ratio 15.8 (12.0-20.0); CO2, Blood 23 mmol/L (21-32); Calcium, Blood 8.4 mg/dL (8.5-10.1); Chloride, Blood 99 mmol/L (98-108); Creatinine, Blood 6.84 mg/dL (0.60-1.20); Glomerular Filtration Rate 9 (60-); Glucose, Blood 104 mg/dL (70-99); Phosphorus, Blood 8.5 mg/dL (2.5-4.9); Potassium, Blood 3.3 mmol/L (3.5-5.5); Sodium, Blood 139 mmol/L (136-145)
--- NOTE | 2022-11-03 05:10 | NUR ---
24hr urine just began with 325ml output of dark li urine. Start 11/03 0500 Ends 11/04 499
--- NOTE | 2022-11-03 05:58 | NUR ---
Assumed care of pt at 2309. A/Ox4. C/o 2/10 abdominal pain which he states is much better than earlier in the day. Some weakness noted. RA. SR w/BBB 80's, denies CP/pressure, HTN noted - PRN's given with some effect. 1+ pitting edema in BLE and BUE. Moderate abdominal distention, tender to touch. Rash noted from neck to knee's along with a few spots on feet from presumed allergy reaction to anx in ER, no SOB or difficulty breathing. 24 hour urine started at 0500. Dr. Kwon has been consulted on the case. Will report to dayshift RN. Patient educated on risk RE: ignition sources and risk of injury while oxygen is in use. Patient denies smoking & patient/family verbalize understanding.
--- NOTE | 2022-11-03 09:11 | NUR ---
update pt noted to have htn. call placed to [facility]. [facility] to look into ordering home oral medications.
--- NOTE | 2022-11-03 18:18 | NUR ---
SHIFT SUMMARY PT EDUCATED ON IGNITION SOURCES, OXYGEN, FIRE PREVENTION. PT A&OX4, PLEASANT. SP02>90% ON RA. HTN NOTED, HOME MEDS RESTARTED. PT ABLE TO TOLERATE CLEAR LIQUID DIET W/ 05/08 ABD PAIN. VOIDED IN URINAL FOR 24 HR URINE COLLECTION. NO BM THIS SHIFT. PT ABLE TO AMBULATED TO SHOWER FOR SHOWER THIS SHIFT. CURRENTLY UP IN CHAIR EATING DINNER. FLUIDS INFUSED PER EMAR. ABX PER EMAR. CALL LIGHT IN REACH.
--- NOTE | 2022-11-04 02:46 | NUR ---
SAFETY & EDUCATION NOTE PT & FAMILY EDUCATED RE: IGNITION SOURCES & RISK OF INJURY WHILE OXYGEN IS IN USE. PT DENIES SMOKING AND PT & FAMILY VERBALIZE UNDERSTANDING.
[2022-11-04 04:12] VITALS: BP 153/89
[2022-11-04 05:07] LABS: Hematocrit 38.2 % (37.0-53.0); Hemoglobin 12.2 g/dL (13.5-17.5)
[2022-11-04 05:36] LABS: Albumin, Blood 1.9 g/dL (3.4-5.0); Anion Gap 15 mmol/L (6-16); Blood Urea Nitrogen 114 mg/dL (8-24); Bun/Creatinine Ratio 17.5 (12.0-20.0); CO2, Blood 21 mmol/L (21-32); Calcium, Blood 8.6 mg/dL (8.5-10.1); Chloride, Blood 105 mmol/L (98-108); Creatinine, Blood 6.52 mg/dL (0.60-1.20); Glomerular Filtration Rate 9 (60-); Glucose, Blood 108 mg/dL (70-99); Magnesium, Blood 2.8 mg/dL (1.6-2.4); Potassium, Blood 3.3 mmol/L (3.5-5.5); Sodium, Blood 141 mmol/L (136-145)
--- NOTE | 2022-11-04 05:58 | NUR ---
SHIFT SUMMARY SEE PREVIOUS NOTE. PT A&Ox4, CALLS AND COMMUNICATES NEEDS APPROPRIATELY. BP STABLE, SB-SR 50-60's, DENIES CP/PRESSURE. SpO2> 92% RA, DENIES SOB. NO BM THIS SHIFT, CONTINENT OF URINE. 1 ASSIST TO BATHROOM. NS INFUSING PER EMAR. NO OTHER EVENTS, WILL REPORT TO ONCOMING RN.
[2022-11-04 06:48] LABS: Protein, Urine Quantitative 105.1 mg/dL (0.0-11.9)
--- NOTE | 2022-11-04 09:17 | NUR ---
AM NOTE Pt alert, oriented x3; calm and cooperative wtih care. Flat affect. Pt up in chair for breakfast, back in bed to place powerglide with sba. Pt denies pain, chest pain/pressure, sob, nausea, dizziness and numb/tingling. Tele sinus 60' bp elebated. Spo2 100% on ra, breathing even and unlabored. Abd soft, nontedner, +bt noted. PIV not drawing back blood, slight resistance with flushing, removed IV, placed powerglide. Other vss. No acute changes noted. Will continue to monitor.
[2022-11-04 11:51] VITALS: BP 151/117
[2022-11-04 16:37] VITALS: BP 150/97
--- NOTE | 2022-11-04 17:27 | NUR ---
Shift Summary No acute changes t/o shift. Vss. Will continue to monitor.
[2022-11-04 19:50] VITALS: BP 154/98
[2022-11-05] VITALS: BP 182/102
[2022-11-05 05:35] VITALS: BP 178/87
[2022-11-05 05:49] LABS: Hemoglobin 12.6 g/dL (13.5-17.5)
--- NOTE | 2022-11-05 06:09 | NUR ---
PATIENT ALERT AND ORIENTED. AROUND 0100 PATIENT STATED HE WANTED TO STOP TREATMENT AND LEAVE AMA IN THE MORNING. FLUIDS AND ABX STOPPED PER PATIENT REQUEST RESIDENT WAS NOTIFIED. PATIENT STARTED STATING "THAT WE NEED TO CALL THE PRESDIENT BECAUSE THERE WILL BE AN ARMAGEDON" PATIENT ALSO STATED "VOICES WERE TELLING HIM THIS INFORMATION" PATIENT CONTINUED TO MAKE SIMILIAR STATMENTS PATIENT CONTINUED TO REFUSED ALL CARE AND TREATMENT THROUGHOUT NIGHT UNTIL AROUND 0500. RAJNI GIBSON FOUND A NOTE RIPPED IN PATIENT BED. NOTE WAS PLACED IN PATIENT BINDER. PATIENT WAS ASKED IF HE WAS HAVING THOUGHTS OF HURTING HIMSELF OR OTHERS WHICH HE DENIED. PATIENT ALSO DENIED WANTING TO .
[2022-11-05 06:10] LABS: Albumin, Blood 2.1 g/dL (3.4-5.0); Anion Gap 12 mmol/L (6-16); Blood Urea Nitrogen 108 mg/dL (8-24); Bun/Creatinine Ratio 19.2 (12.0-20.0); CO2, Blood 23 mmol/L (21-32); Calcium, Blood 8.7 mg/dL (8.5-10.1); Chloride, Blood 106 mmol/L (98-108); Creatinine, Blood 5.63 mg/dL (0.60-1.20); Glomerular Filtration Rate 11 (60-); Glucose, Blood 146 mg/dL (70-99); Magnesium, Blood 2.5 mg/dL (1.6-2.4); Phosphorus, Blood 4.7 mg/dL (2.5-4.9); Potassium, Blood 2.9 mmol/L (3.5-5.5); Sodium, Blood 141 mmol/L (136-145)
--- NOTE | 2022-11-05 06:19 | NUR ---
NOTIFIED PHYSICIAN NOTIFIED PHYSICIAN OF Hgb LEVEL, NO NEW ORDERS AT THIS TIME.
[2022-11-05 09:00] VITALS: BP 184/103
--- NOTE | 2022-11-05 12:54 | NUR ---
Spiritual care visit conducted. Patient is lying in bed and alert. Patient tells me about his current medical problems and on going struggles with fears and medical issues. He explains about his loss of sharyn over the years and his, not so favorable, living conditions downtown [place]. He talks about the healing activities of reading, movies and short trips with his friends. He explains about his spupport system and it's pluses and minuses. I listen empathically, normalize his frustrations and fears, and reinforce helpful attitudes. Patient showed signs of being encouraged by the visit.
--- NOTE | 2022-11-05 13:03 | NUR ---
PAtient is lying in bed and sleeping off and on. Her SO, Khadar is bedside and tearful at times. He talks about her medical problems and the plan to transport her to [facility]. He tells me that his former of cancer 4 yrs ago and his struggle to recover from the grief and how challenging for him because of how close he and the patient have become over the last 3 yrs. He tells me about the trips they have gone on, the [employer] [facility] she has brought him into and the abundant amount of strength love and gwendolyn the patient typically has. I conduct a life review, normalize the emotions and experience and provide therapeutic listening, gentle certified alcohol and drug counselor and prayer. Khadar and patient responded well and showed signs of being encouraged in their sharyn and hopes. I will continue to remain available to patient and fmaily.
[2022-11-05 14:33] LABS: U Amphetamine Screen Not Detected; U Barbituate Screen Not Detected; U Benzodiazapine Screen Not Detected; U Buprenorphine Screen Not Detected; U Cannabinoids Screen Not Detected; U Cocaine Screen Not Detected; U Methadone Screen Not Detected; U Methamphetamine Screen Not Detected; U Opiates Screen DETECTED; U Oxycodone Screen Not Detected; U Phencyclidine Screen Not Detected; U Propoxyphene Screen Not Detected
[2022-11-05 15:34] VITALS: BP 165/86
--- NOTE | 2022-11-05 18:15 | NUR ---
Shift Summary Pt alert, oriented x4, calm and cooperative with care, pt appears flat t/o shift. Pt denies pain, chest pain/pressure, sob, nausea, dizziness and numb/tingling. Spo2 >94% on ra, breathing even and unlabored. No tele, bp elevated, increased medications during shift. Other vss. No other acute chagnes noted. Report given to rn assuming care of patient.
--- NOTE | 2022-11-05 18:23 | NUR ---
PATIENT ARRIVED FROM PCU 2 AT 1815 VIA W/C. TRANSFERRED TO BED WITH 1 PERSON ASSIST. DENIED PAIN. NS INFUSING AT 50 ML/HR THROUGH RUKHSANA POWERGLIDE IV. CALL LIGHT IN REACH, NON SKID SLIPPERS AND BED ALARM ON. NO NEEDS AT THIS TIME.
[2022-11-05 19:16] VITALS: BP 174/95
[2022-11-06 03:23] VITALS: BP 180/104
--- NOTE | 2022-11-06 03:37 | NUR ---
GLOVE TAGGER SUMMARY NO ACUTE EVENTS OVERNIGHT. A&OX4. PATIENT EFFECTIVELY COMMUNICATES NEEDS. VSS. RR EVEN AND UNLABORED ON RA. A PSYCH CONSULT HAS BEEN ORDERED DUE TO PATIENT REPORTS OF AUDITORY HALLUCINATIONS. PATIENT DID REPORT TO THIS RN THAT HE CONSTANTLY HEARS VOICES, HOWEVER, HE DENIES SI/HI. NS INFUSING @50ML/HR. PATIENT IS TOLERATING IV ABO THERAPY. PATIENT REFUSED EVENING MEDICATIONS, BUT DID ALLOW THIS RN TO ADMINISTER HIS IV ABO, WELL ADMINISTER PRN IV ANTIHYPERTENSIVE MEDICATION. BED LOW AND LOKCED. CALL LIGHT WITHIN REACH. THIS RN WILL CONTINUE TO MONITOR.
[2022-11-06 04:07] VITALS: BP 175/88
--- NOTE | 2022-11-06 05:00 | NUR ---
PATIENT EDUCATION PATIENT EDUCATION ON IGNITION SOURCES AND RISK OF INJURY WHEN OXYGEN IS IN USE. PATIENT DENIES HAVING POSSIBLE IGNITION SOURCES AND/OR TOBACCO PRODUCTS. PATIENT IS AGREEABLE WITH EDUCATION.
[2022-11-06 07:27] LABS: Anion Gap 9 mmol/L (6-16); Blood Urea Nitrogen 82 mg/dL (8-24); Bun/Creatinine Ratio 18.9 (12.0-20.0); CO2, Blood 24 mmol/L (21-32); Calcium, Blood 8.5 mg/dL (8.5-10.1); Chloride, Blood 110 mmol/L (98-108); Creatinine, Blood 4.34 mg/dL (0.60-1.20); Glomerular Filtration Rate 15 (60-); Glucose, Blood 111 mg/dL (70-99); Magnesium, Blood 2.3 mg/dL (1.6-2.4); Phosphorus, Blood 3.5 mg/dL (2.5-4.9); Potassium, Blood 3.3 mmol/L (3.5-5.5); Sodium, Blood 143 mmol/L (136-145)
[2022-11-06 07:49] VITALS: BP 163/113
[2022-11-06 13:01] VITALS: BP 162/88
[2022-11-06 15:49] LABS: Hematocrit 44.2 % (37.0-53.0); Hemoglobin 13.8 g/dL (13.5-17.5); Mean Corpuscular HGB 27.2 pg (26.0-34.0); Mean Corpuscular HGB Conc 31.2 g/dL (31.5-36.5); Mean Corpuscular Volume 87 fL (80-100); Mean Platelet Volume 10.3 fL (9.1-12.4); Platelet Count 393 K/mm3 (150-400); RDW Coefficient Variation 16.4 % (11.7-14.2); RDW Standard Deviation 52.4 fL (35.1-46.3); Red Blood Cell Count 5.07 M/mm3 (4.30-5.90); White Blood Cell Count 29.38 K/mm3 (4.00-11.30)
--- NOTE | 2022-11-06 15:53 | NUR ---
OXYGEN SAFETY EDUCATION: PATIENT EDUCATED ABOUT USE OF OXYGEN IN THE HOSPITAL, FLAMMABILITY OF OXYGEN, AND RISK FOR INJURY R/T OXYGEN USE. VERBALIZED UNDERSTANDING OF EDUCATION, DENIES HAVING INCENDIARY DEVICES (LIGHTERS, MATCHES, ETC.) IN HIS POSSESSION. PATIENT IS A NON-SMOKER.
[2022-11-06 16:14] LABS: BAND PERCENT MAN 1 % (0-8); BASOPHILS PERCENT MAN 0 % (0-2); EOSINOPHILS PERCENT MAN 0 % (0-6); LYMPHOCYTES ABSOLUTE MAN 2.64 K/mm3 (0.84-5.20); LYMPHOCYTES PERCENT MAN 9 % (21-46); METAMYELOCYTE ABSOLUTE MAN 0.29 K/mm3 (0.00-0.00); METAMYELOCYTE PERCENT MAN 1 % (0-0); MONOCYTES ABSOLUTE MAN 1.17 K/mm3 (0.16-1.47); MONOCYTES PERCENT MAN 4 % (4-13); NEUTROPHILS ABSOLUTE MAN 25.26 K/mm3 (1.96-9.15); SEG NEUTROPHILS PERCENT MAN 85 % (41-73); TOTAL CELLS COUNTED 100
[2022-11-06 17:00] VITALS: BP 200/102
--- NOTE | 2022-11-06 18:39 | NUR ---
SHIFT SUMMARY: NO ACUTE EVENTS. DENIED PAIN. ADVANCED DIET TO SOFT BITES, SEEMED TO TOLERATE DINNER. DENIED NAUSEA. HAD REPEAT ABD CT. HYPERTENSIVE THIS EVENING (200/113), HYDRALAZINE GIVEN.
[2022-11-06 19:12] VITALS: BP 166/94
[2022-11-07 04:23] VITALS: BP 172/95
[2022-11-07 05:03] LABS: Hemoglobin 12.5 g/dL (13.5-17.5)
--- NOTE | 2022-11-07 05:32 | NUR ---
SHIFT SUMMARY 52 YR M ADMITTED ON 11/02/22 FOR SEPSIS. FULL CODE. PT HAS HAD NO C/O PAIN OR DISCOMFORT THIS SHIFT. HE IS PLEASANT AND COOPERATIVE WITH CARE. NO REPORTS OF AUDITORY OR VISUAL HALLUCINATIONS. BP WAS ELEVATED TO 172/95 AT 0430 AND HYDRALYZINE WAS GIVEN. PT DOES NOT APPEAR TO HAVE RESTED WELL THROUGHOUT THE NIGHT, HE WAS AWAKE EACH TIME HE WAS ROUNDED ON.
[2022-11-07 05:35] LABS: Albumin, Blood 1.9 g/dL (3.4-5.0); Anion Gap 9 mmol/L (6-16); Blood Urea Nitrogen 72 mg/dL (8-24); Bun/Creatinine Ratio 19.3 (12.0-20.0); CO2, Blood 22 mmol/L (21-32); Calcium, Blood 8.1 mg/dL (8.5-10.1); Chloride, Blood 112 mmol/L (98-108); Creatinine, Blood 3.73 mg/dL (0.60-1.20); Glomerular Filtration Rate 19 (60-); Glucose, Blood 109 mg/dL (70-99); Magnesium, Blood 1.9 mg/dL (1.6-2.4); Phosphorus, Blood 3.3 mg/dL (2.5-4.9); Potassium, Blood 3.5 mmol/L (3.5-5.5); Sodium, Blood 143 mmol/L (136-145)
[2022-11-07 07:07] LABS: Hematocrit 39.5 % (37.0-53.0); Hemoglobin 12.5 g/dL (13.5-17.5); Mean Corpuscular HGB 27.4 pg (26.0-34.0); Mean Corpuscular HGB Conc 31.6 g/dL (31.5-36.5); Mean Corpuscular Volume 86 fL (80-100); Mean Platelet Volume 10.5 fL (9.1-12.4); Platelet Count 340 K/mm3 (150-400); RDW Coefficient Variation 16.6 % (11.7-14.2); RDW Standard Deviation 51.6 fL (35.1-46.3); Red Blood Cell Count 4.57 M/mm3 (4.30-5.90); White Blood Cell Count 23.77 K/mm3 (4.00-11.30)
[2022-11-07 07:35] LABS: BAND PERCENT MAN 2 % (0-8); BASOPHILS PERCENT MAN 0 % (0-2); EOSINOPHILS ABSOLUTE MAN 0.47 K/mm3 (0.00-0.68); EOSINOPHILS PERCENT MAN 2 % (0-6); LYMPHOCYTES % ATYPICAL MANUAL 3 % (0-0); LYMPHOCYTES ABSOLUTE MAN 2.13 K/mm3 (0.84-5.20); LYMPHOCYTES PERCENT MAN 6 % (21-46); METAMYELOCYTE ABSOLUTE MAN 0.95 K/mm3 (0.00-0.00); METAMYELOCYTE PERCENT MAN 4 % (0-0); MONOCYTES ABSOLUTE MAN 0.47 K/mm3 (0.16-1.47); MONOCYTES PERCENT MAN 2 % (4-13); NEUTROPHILS ABSOLUTE MAN 19.72 K/mm3 (1.96-9.15); SEG NEUTROPHILS PERCENT MAN 81 % (41-73); TOTAL CELLS COUNTED 100
[2022-11-07 08:25] VITALS: BP 178/89
[2022-11-07 10:56] LABS: International Normalized Ratio 1.18; Prothrombin Time Results 12.3 Sec (9.7-11.5)
[2022-11-07 16:32] VITALS: BP 167/97
--- NOTE | 2022-11-07 19:09 | NUR ---
ALERT AND ORIENTED, MAKES NEEDS KNOWN, PIG TAIL DRAIN PLACED TODAY, DENIES PAIN, STAND BY TO BATHROOM, BM TODAY, OK TO EAT, HTN NOW 167/97, SATS 100% ON RA, , DR MANSFIELD REPORTED POSSIBLE DISCHARGE TOMORROWM FATHER YUAN CALLED FOR AN UPDATE. NO AUDITORY OR VISUAL HALLUCINATIONS THIS SHIFT, CALL LIGHT WITH IN REACH, RELAYED TO PM RN
[2022-11-07 19:40] VITALS: BP 163/85
[2022-11-08 03:53] VITALS: BP 173/96
[2022-11-08 04:57] LABS: Hematocrit 38.7 % (37.0-53.0); Hemoglobin 12.2 g/dL (13.5-17.5); Mean Corpuscular HGB 27.4 pg (26.0-34.0); Mean Corpuscular HGB Conc 31.5 g/dL (31.5-36.5); Mean Corpuscular Volume 87 fL (80-100); Mean Platelet Volume 9.9 fL (9.1-12.4); Platelet Count 319 K/mm3 (150-400); RDW Coefficient Variation 16.6 % (11.7-14.2); Red Blood Cell Count 4.45 M/mm3 (4.30-5.90); White Blood Cell Count 21.48 K/mm3 (4.00-11.30)
[2022-11-08 05:15] LABS: Albumin, Blood 1.9 g/dL (3.4-5.0); Anion Gap 8 mmol/L (6-16); Blood Urea Nitrogen 62 mg/dL (8-24); Bun/Creatinine Ratio 17.4 (12.0-20.0); CO2, Blood 22 mmol/L (21-32); Calcium, Blood 8.1 mg/dL (8.5-10.1); Chloride, Blood 114 mmol/L (98-108); Creatinine, Blood 3.56 mg/dL (0.60-1.20); Glomerular Filtration Rate 20 (60-); Glucose, Blood 108 mg/dL (70-99); Magnesium, Blood 1.7 mg/dL (1.6-2.4); Potassium, Blood 3.6 mmol/L (3.5-5.5); Sodium, Blood 144 mmol/L (136-145)
[2022-11-08 05:26] VITALS: BP 163/96
[2022-11-08 05:35] LABS: BAND PERCENT MAN 2 % (0-8); BASOPHILS PERCENT MAN 0 % (0-2); EOSINOPHILS ABSOLUTE MAN 0.85 K/mm3 (0.00-0.68); EOSINOPHILS PERCENT MAN 4 % (0-6); LYMPHOCYTES ABSOLUTE MAN 1.07 K/mm3 (0.84-5.20); LYMPHOCYTES PERCENT MAN 5 % (21-46); METAMYELOCYTE ABSOLUTE MAN 0.64 K/mm3 (0.00-0.00); METAMYELOCYTE PERCENT MAN 3 % (0-0); MONOCYTES ABSOLUTE MAN 1.28 K/mm3 (0.16-1.47); MONOCYTES PERCENT MAN 6 % (4-13); MYELOCYTE ABSOLUTE MAN 1.07 K/mm3 (0.00-0.00); MYELOCYTE PERCENT MAN 5 % (0-0); NEUTROPHILS ABSOLUTE MAN 16.53 K/mm3 (1.96-9.15); SEG NEUTROPHILS PERCENT MAN 75 % (41-73); TOTAL CELLS COUNTED 100
--- NOTE | 2022-11-08 05:42 | NUR ---
SHIFT SUMMARY NO C/O PAIN OVERNIGHT. PT SLEPT WELL WITH CALL PAGE IN REACH. SBP 170'S AROUND 0300. PRN HYDRALAZINE GIVEN WITH NO EFFECT. NO BP PARAMETERS NOTED FOR PRN HYDRALAZINE. Q1H FIRE SAFETY CHECKS COMPLETED WITH NO IGNITION SOURCES FOUND.
[2022-11-08 07:53] VITALS: BP 163/95
--- NOTE | 2022-11-08 08:06 | NUR ---
pt laying in bed awake a/ox4, in good spirits, states he's doing ok, no complaints, states he slept well last night, lungs are clear t/o, resp even and unlabored, no cough noted, hrr, 2+edema noted to b/l le, ppp+1, cap refill <3sec, vs stable, afebrile, iv site is power glide, infusing ns at 50mls/hr, site is clear and patent, btx4, abd flat soft nontender, drain on left side with brown liquid in bag, voids without diff, skin c/w/d, maew, kalpana, call light in reach.
--- NOTE | 2022-11-08 14:40 | NUR ---
Patient is sitting on a chair and alert. He immediately tells me that he might have to have his gall bladder removed. He shares his concerns but also his trust in the phycisians. "If they think I need it removed than I'm okay with that." He speaks of his friends and what he looks forward to once he is discharged. Patient is shares about the 2,200 DVDs he has and his love for reading. I provide therapeutic listening and a calming presence. Patient responded well and voiced his appreciation for having someone to talks with. I will continue to remain available.
--- NOTE | 2022-11-08 19:25 | NUR ---
Pt had an uneventful day, had a shower, sat up in chair most of the day, edema in b/l le def worse after sitting. no further changes this shift. call light in reach.
[2022-11-08 19:35] VITALS: BP 140/90
[2022-11-09 05:07] VITALS: BP 140/96
[2022-11-09 05:17] LABS: Hematocrit 38.2 % (37.0-53.0); Mean Corpuscular HGB 27.3 pg (26.0-34.0); Mean Corpuscular HGB Conc 31.4 g/dL (31.5-36.5); Mean Corpuscular Volume 87 fL (80-100); Mean Platelet Volume 10.4 fL (9.1-12.4); Platelet Count 330 K/mm3 (150-400); RDW Coefficient Variation 17.1 % (11.7-14.2); RDW Standard Deviation 54.9 fL (35.1-46.3); Red Blood Cell Count 4.39 M/mm3 (4.30-5.90); White Blood Cell Count 22.14 K/mm3 (4.00-11.30)
[2022-11-09 06:00] LABS: Anion Gap 7 mmol/L (6-16); Blood Urea Nitrogen 59 mg/dL (8-24); Bun/Creatinine Ratio 16.7 (12.0-20.0); CO2, Blood 23 mmol/L (21-32); Calcium, Blood 8.5 mg/dL (8.5-10.1); Chloride, Blood 113 mmol/L (98-108); Creatinine, Blood 3.54 mg/dL (0.60-1.20); Glomerular Filtration Rate 20 (60-); Glucose, Blood 107 mg/dL (70-99); Magnesium, Blood 1.8 mg/dL (1.6-2.4); Phosphorus, Blood 2.6 mg/dL (2.5-4.9); Potassium, Blood 3.9 mmol/L (3.5-5.5); Sodium, Blood 143 mmol/L (136-145)
[2022-11-09 06:19] LABS: BAND PERCENT MAN 4 % (0-8); BASOPHILS ABSOLUTE MAN 0.22 K/mm3 (0.00-0.23); BASOPHILS PERCENT MAN 1 % (0-2); EOSINOPHILS ABSOLUTE MAN 0.88 K/mm3 (0.00-0.68); EOSINOPHILS PERCENT MAN 4 % (0-6); LYMPHOCYTES ABSOLUTE MAN 1.77 K/mm3 (0.84-5.20); LYMPHOCYTES PERCENT MAN 8 % (21-46); MONOCYTES ABSOLUTE MAN 1.32 K/mm3 (0.16-1.47); MONOCYTES PERCENT MAN 6 % (4-13); MYELOCYTE ABSOLUTE MAN 0.44 K/mm3 (0.00-0.00); MYELOCYTE PERCENT MAN 2 % (0-0); NEUTROPHILS ABSOLUTE MAN 17.49 K/mm3 (1.96-9.15); SEG NEUTROPHILS PERCENT MAN 75 % (41-73); TOTAL CELLS COUNTED 100
--- NOTE | 2022-11-09 06:28 | NUR ---
SHIFT SUMMARY NO EVENTS OVERNIGHT. PATIENT'S ABDOMINAL DRAIN PUT OUT 50CC TOTAL FOR DAY SHIFT AND GOLD FRAME ASSEMBLER. BP IMPROVED AND DID NOT REQUIRE ANY PRN HYDRALAZINE.Q1H FIRE SAFETY CHECKS COMPLETED, NO IGNITION SOURCES FOUND.
--- NOTE | 2022-11-09 08:00 | NUR ---
pt sitting up in a chair for breakfast, a/ox4, pleasant and cooperative with care, follows commands well, denies complaints states he had a good night, lungs are clear t/o, resp even and unlabored, no cough noted, hrr, 4+ edema noted to b/l le, cap refill <3sec, vs stable, afebrile, iv site is clear and patent, btx4, abd flat soft nontender, voids without diff, skin c/w/d, except drain to left flank, draining brown fluid, site is clear, dressing intact, maew, up indep, kalpana, call light in reach.
[2022-11-09 15:59] VITALS: BP 132/87
--- NOTE | 2022-11-09 18:45 | NUR ---
pt denies any ignitable materials in room. no acute changes this shift, no complaints, sat up in the chair most of the shift. call light in reach.
[2022-11-09 19:37] VITALS: BP 146/86
[2022-11-10] VITALS (7 sets, daily range): BP systolic 149–158; BP diastolic 91–97
--- NOTE | 2022-11-10 05:31 | NUR ---
SHIFT SUMMARY 89 PT A&OX4 AND PLEASANT. PT CALLS APPROPRIATLY. UP TO BATHROOM WITH ASSIST SEVERAL TIMES T/O NIGHT. LEFT UPPER ABD DRAIN EMPTIED AT START OF SHIFT. PINK TINGED LIQUID NOTED IN BAG. NO NOTICIABLE ODOR NOTED. VERY LITTLE OUTPUT OVERNIGHT. NO C/O PAIN. PT RECIEVED ABX DURING THE NIGHT. NO ACUTE CHANGES. PT REMINDED OF POSSIBLE SOURCES OF IGNITION AND NO SMOKING POLICY. BED IN LOWEST POSITION AND CALL LIGHT WITHIN REACH.
[2022-11-10 06:19] LABS: Hematocrit 39.4 % (37.0-53.0); Hemoglobin 11.8 g/dL (13.5-17.5)
[2022-11-10 10:47] LABS: Anion Gap 13 mmol/L (6-16); Blood Urea Nitrogen 62 mg/dL (8-24); Bun/Creatinine Ratio 16.9 (12.0-20.0); CO2, Blood 22 mmol/L (21-32); Calcium, Blood 9.1 mg/dL (8.5-10.1); Chloride, Blood 106 mmol/L (98-108); Creatinine, Blood 3.66 mg/dL (0.60-1.20); Glomerular Filtration Rate 19 (60-); Glucose, Blood 103 mg/dL (70-99); Magnesium, Blood 1.8 mg/dL (1.6-2.4); Phosphorus, Blood 3.6 mg/dL (2.5-4.9); Potassium, Blood 4.1 mmol/L (3.5-5.5); Sodium, Blood 141 mmol/L (136-145)
--- NOTE | 2022-11-10 14:36 | NUR ---
CARE NOTE AT APPROX. 1345 THIS NURSE WAS NOTIFIED BY DELGADO HOPSON THAT PT REPORTED NOT WANTING TO TAKE ANY MORE MEDICATIONS. THIS NURSE WENT INTO PT ROOM AND ASKED WHY THE PT DID NOT WANT TO TAKE HIS MEDS AND HE STATED "I JUST DON'T WANT TO, I KNOW MY BODY AND I DON'T NEED THEM." THIS NURSE EDUCATED PT REGARDING IMPORTANCE OF BEING COMPLIANT W/ BP MEDICATIONS DUE TO ELEVATED BP. DR. MAHMOOD AND DR. MANSFIELD WERE BOTH MADE AWARE BY THIS RN.
--- NOTE | 2022-11-10 17:20 | NUR ---
SHIFT SUMMARY PT IS ALERT AND ORIENTED X4, HE HAS BEEN ABLE TO MAKE HIS NEEDS KNOWN AND USES THE CALL LIGHT APPROPRIATELY. BP NOTED TO BE ELEVATED W/ SBP IN 150'S. PT DENIED AFTERNOON DOSE OF CATAPRESS, DR. MAHMOOD AND SHYLA MADE AWARE. VITAL SIGNS ARE OTHERWISE STABLE AND PT IS ON RA. HE DENIED PAIN DURING SHIFT WELL FEELINGS OF NAUSEA AND SOB. URESIIL DRAIN IN LLQ IS PATENT AND DRAINING SMALL RED/BROWN OUTPUT. PG IN LARS IS SALINE LOCKED. PT IS A SBA W/ FWW TO VOID. HE HAS BEEN UP IN CHAIR FOR MEALS DURING SHIFT W/ BREAKS IN BED TO ELEVATE LOWER EXTREMETIES. WILL CONTINUE TO MONITOR UNTIL REPORT GIVEN. PT IS NOW UP IN CHAIR, CALL LIGHT W/IN REACH.
[2022-11-11 02:43] VITALS: BP 168/101
[2022-11-11 03:37] VITALS: BP 166/93
[2022-11-11 04:29] LABS: Hematocrit 39.7 % (37.0-53.0); Hemoglobin 12.7 g/dL (13.5-17.5)
[2022-11-11 04:48] LABS: Albumin, Blood 2.3 g/dL (3.4-5.0); Anion Gap 7 mmol/L (6-16); Blood Urea Nitrogen 54 mg/dL (8-24); Bun/Creatinine Ratio 16.1 (12.0-20.0); CO2, Blood 24 mmol/L (21-32); Calcium, Blood 8.5 mg/dL (8.5-10.1); Chloride, Blood 108 mmol/L (98-108); Creatinine, Blood 3.35 mg/dL (0.60-1.20); Glomerular Filtration Rate 21 (60-); Glucose, Blood 108 mg/dL (70-99); Magnesium, Blood 1.5 mg/dL (1.6-2.4); Potassium, Blood 3.6 mmol/L (3.5-5.5); Sodium, Blood 139 mmol/L (136-145)
--- NOTE | 2022-11-11 05:40 | NUR ---
SHIFT SUMMARY NO NEW ISSUES NOTED. PT DRAIN SITE IS C/D/I. SCANT AMOUNT OF DRAINAGE NOTED. PT HAS BEEN UP WITH FWW TO USE RESTROOM. PT HAS BEEN VOIDING AND HAD A BM THIS SHIFT. NO ISSUES FROM [employer]. PT DENIES CX PAIN OR SOB. PT DENIES ANY N/V. PT HAS SLEPT OFF AND ON THROUGHOUT SHIFT. CALL LIGHT IN REACH.
[2022-11-11 07:39] VITALS: BP 157/103
[2022-11-11 15:23] VITALS: BP 148/93
--- NOTE | 2022-11-11 18:20 | NUR ---
SHIFT SUMMARY PT A/OX4. ABLE TO MAKE NEEDS KNOWN. PLEASANT AND COOPERATIVE. DRAIN REMOVED AT BEDSIDE TODAY. PT TOLERATED WELL. NO COMPLAINTS OF PAIN, NO TENDERNESS, WARMTH, OR REDNESS TO ABD. DRAIN SITE COVERED WITH BANDAID. DR MANSFIELD ORDERED BUMEX 2.5MG 2X DAILY IV. PT TOLERATING WELL AND HAVING OUTPUT. PLACED ON 100ML FLUID RESTRICTION. NOTED SOME SCANT BRANDON BLOOD IN URINAL. ASKED PT IF HE HAD PAIN WITH URINATION AND HE SAID YES, SOME. WHEN HE VOIDED AGAIN, IT WAS CLEAR AND HE SAID NO PAIN. PT HAD ONE BOWEL MOVEMENT TODAY. PT HAS BEEN AMBULATING INDEPENDENTLY IN THE ROOM DURING THIS SHIFT. HE WILL CALL TO MAKE NEEDS KNOWN. POWER GLIDE TO LARS IS POSITIONAL FOR INFUSING AND WILL NOT DRAW.
[2022-11-11 19:31] VITALS: BP 175/93
[2022-11-12 04:13] VITALS: BP 157/95
--- NOTE | 2022-11-12 04:51 | NUR ---
NO ACUTE CHANGES, MAKES NEEDS KNOWN, INDEPENDENT TO SBA AT TIMES, CALL LIGHT WITH IN REACH, LAST BP 157/95 NO PRN HYDRALAZINE USED, ABD DRESSING CDI, DENEIS PAIN, WILL RELAY TO PM RN
[2022-11-12 05:34] LABS: Hematocrit 39.8 % (37.0-53.0); Hemoglobin 12.7 g/dL (13.5-17.5); Mean Corpuscular HGB 27.6 pg (26.0-34.0); Mean Corpuscular HGB Conc 31.9 g/dL (31.5-36.5); Mean Corpuscular Volume 87 fL (80-100); Mean Platelet Volume 10.6 fL (9.1-12.4); Platelet Count 324 K/mm3 (150-400); RDW Coefficient Variation 17.3 % (11.7-14.2); RDW Standard Deviation 54.8 fL (35.1-46.3); White Blood Cell Count 21.07 K/mm3 (4.00-11.30)
[2022-11-12 05:55] LABS: Albumin, Blood 2.3 g/dL (3.4-5.0); Anion Gap 8 mmol/L (6-16); Blood Urea Nitrogen 47 mg/dL (8-24); Bun/Creatinine Ratio 14.2 (12.0-20.0); CO2, Blood 26 mmol/L (21-32); Calcium, Blood 8.6 mg/dL (8.5-10.1); Chloride, Blood 107 mmol/L (98-108); Creatinine, Blood 3.31 mg/dL (0.60-1.20); Glomerular Filtration Rate 21 (60-); Glucose, Blood 99 mg/dL (70-99); Magnesium, Blood 1.7 mg/dL (1.6-2.4); Phosphorus, Blood 3.3 mg/dL (2.5-4.9); Potassium, Blood 3.5 mmol/L (3.5-5.5); Sodium, Blood 141 mmol/L (136-145)
[2022-11-12 06:01] LABS: BAND PERCENT MAN 5 % (0-8); BASOPHILS ABSOLUTE MAN 0.21 K/mm3 (0.00-0.23); BASOPHILS PERCENT MAN 1 % (0-2); EOSINOPHILS ABSOLUTE MAN 0.21 K/mm3 (0.00-0.68); EOSINOPHILS PERCENT MAN 1 % (0-6); LYMPHOCYTES ABSOLUTE MAN 2.52 K/mm3 (0.84-5.20); LYMPHOCYTES PERCENT MAN 12 % (21-46); METAMYELOCYTE ABSOLUTE MAN 0.21 K/mm3 (0.00-0.00); METAMYELOCYTE PERCENT MAN 1 % (0-0); MONOCYTES ABSOLUTE MAN 2.31 K/mm3 (0.16-1.47); MONOCYTES PERCENT MAN 11 % (4-13); MYELOCYTE ABSOLUTE MAN 0.21 K/mm3 (0.00-0.00); MYELOCYTE PERCENT MAN 1 % (0-0); NEUTROPHILS ABSOLUTE MAN 15.38 K/mm3 (1.96-9.15); SEG NEUTROPHILS PERCENT MAN 68 % (41-73); TOTAL CELLS COUNTED 100
[2022-11-12 07:44] VITALS: BP 176/108
--- NOTE | 2022-11-12 16:23 | NUR ---
SHIFT SUMMARY PT AWAKE DURING SHIFT REPORT. RESTING QUIETLY IN BED WATCHING TV. UP INDEPENDENTLY TO CHAIR AT FOR MEALS AND THRU OUT THE DAY. PT KEEPING LE'S ELEVATED D/T SWELLING. DR MCWILLIAMS IN TO SEE PT AND DISCUSS PLAN OF CARE AND WAITING FOR SX TO CLEAR PT FOR D/C. DR TRIVEDI IN LATER TO SEE PT AND CLEARED PT FROM SURGERY STANDPOINT. PT TO CONTINUE ABX FOR 4 MORE DAYS TO TOTAL 14, PER DR TRIVEDI. DR MCWILLIAMS UPDATED ON SURGICAL CONSULT VISIT. PT/OT ORDERED AND CAME TO TO WORK WITH PT. PT ABLE AMBULATE IN HALLS AND AROUND , DOING WELL. PT HAS BEEN INDEPENDENT IN AND TO [facility] NEEDED. HX OF HTN; MEDICATIONS GIVEN. DENIED FURTHER NEEDS AT THIS TIME. CALL LT IN REACH.
--- NOTE | 2022-11-12 16:43 | NUR ---
KATE FRIEDMAN DISCUSSED WITH PT; PT IS NONSMOKER AND NOT ON O2.
[2022-11-12 17:37] VITALS: BP 160/97
[2022-11-12 20:28] VITALS: BP 167/102
--- NOTE | 2022-11-12 22:28 | NUR ---
PT REFUSING TO TAKE MEDICATIONS INCLUDING PRN MEDICAITON FOR HIGH BLOOD PRESSURE. PT REPORTS THAT HE KNOWS IT IS IMPORTANT TO TAKE THEM BUT HE CANT EXPLAIN WHY HE WONT TAKE. EMPHASIZED THE IMPORTANCE OF TAKING MEDICAITONS BUT PT CONTINUES TO REFUSE. INFORMED CHARGE NURSE, SHABBIR, WHO ALSO ATTEMPTED. PT REFUSED ALL EFFORTS. REGULATED PROGRAM MANAGER REPORT SINUS 88 WITH BUNDLE BRANCH.
--- NOTE | 2022-11-12 22:47 | NUR ---
DR. RHOADES NOTIFIED OF PATIENTS REFUSAL OF MEDICATION, INCLUDING PRN HTN MEDICAITON
--- NOTE | 2022-11-13 01:54 | NUR ---
PT CONTINUES TO KINDLY REFUSE MEDICAITONS. EDUCATION PROVIDED ON IMPORTANCE OF CONTINUING MEDICATION. PT REFUSED TO SIGN "REFUSAL TO MEDICAL TREATMENT" REFUSAL WAS WITNESSED BY 2 RN. MYSELF AND SHAHAB MIKE MD ALSO NOTIFIED. PT STATES HE KNOWS IT IS IMPORTANT BUT JUST CANT
[2022-11-13 02:31] VITALS: BP 168/110
--- NOTE | 2022-11-13 04:50 | NUR ---
SHIFT SUMMARY PT KINDLY REFUSED ALL MEDICATIONS EARLIER THIS SHIFT. EDUCAITON WAS PROVIDED ON THE IMPORTANCE OF TAKING MEDICAITONS PRESCRIBED. PT DECIDED HE WOULD TAKE MEDICAITONS AROUND 0200. PT BLOOD PRESSURE WAS HIGH THROUGHOUT THE SHIFT. TREATED PER EMAR. INDEPENDENT IN THE ROOM AND ABLE TO MAKE NEEDS KNOWN.
[2022-11-13 05:07] LABS: Hematocrit 41.3 % (37.0-53.0); Hemoglobin 13.2 g/dL (13.5-17.5); Mean Corpuscular HGB 27.4 pg (26.0-34.0); Mean Corpuscular Volume 86 fL (80-100); Mean Platelet Volume 10.3 fL (9.1-12.4); Platelet Count 346 K/mm3 (150-400); RDW Coefficient Variation 17.2 % (11.7-14.2); RDW Standard Deviation 52.9 fL (35.1-46.3); Red Blood Cell Count 4.82 M/mm3 (4.30-5.90)
--- NOTE | 2022-11-13 05:48 | NUR ---
PT REPORTS FEELING THE SAME "WAY" HE DID EARLIER WHEN REFUSING MEDICATIONS. PT TOLD AID THAT HE IS HAVING AUDITORY HALLUCINATIONS. HE REFUSED 0600 MEDICATION. PT HAS SLEPT POORLY THROUGHT THE NIGHT. WILL REPORT CHANGE TO ONCOMING RN.
[2022-11-13 06:23] LABS: Magnesium, Blood 1.8 mg/dL (1.6-2.4)
[2022-11-13 06:25] LABS: Albumin, Blood 2.6 g/dL (3.4-5.0); Anion Gap 9 mmol/L (6-16); Blood Urea Nitrogen 40 mg/dL (8-24); Bun/Creatinine Ratio 12.7 (12.0-20.0); CO2, Blood 24 mmol/L (21-32); Calcium, Blood 8.8 mg/dL (8.5-10.1); Chloride, Blood 107 mmol/L (98-108); Creatinine, Blood 3.14 mg/dL (0.60-1.20); Glomerular Filtration Rate 23 (60-); Glucose, Blood 100 mg/dL (70-99); Phosphorus, Blood 3.5 mg/dL (2.5-4.9); Potassium, Blood 3.7 mmol/L (3.5-5.5); Sodium, Blood 140 mmol/L (136-145)
[2022-11-13 07:20] VITALS: BP 177/98
[2022-11-13 16:23] VITALS: BP 154/101
--- NOTE | 2022-11-13 16:53 | NUR ---
NO ACUTE CHANGES. PT AOX4 AND HAS BEEN COOPERATIVE OF CARE. PT TOOK ALL MEDICATION TODAY. PT ABLE TO MAKE NEEDS KNOWN AND IS INDEPENDENT IN ROOM. NO DISTRESS NOTED AT THIS TIME AND CALL LIGHT WITHIN REACH.
[2022-11-13 19:37] VITALS: BP 155/91
[2022-11-14 04:34] VITALS: BP 155/89
--- NOTE | 2022-11-14 04:43 | NUR ---
SHIFT SUMMARY PT ALERT AND ORIENTED X4. CALM AND COOPERATIVE WITH MEDS. NO ACUTE CHANGES THIS SHIFT
[2022-11-14 05:33] LABS: Hematocrit 39.3 % (37.0-53.0); Hemoglobin 12.4 g/dL (13.5-17.5)
[2022-11-14 06:33] LABS: Albumin, Blood 2.3 g/dL (3.4-5.0); Anion Gap 11 mmol/L (6-16); Blood Urea Nitrogen 38 mg/dL (8-24); Bun/Creatinine Ratio 12.3 (12.0-20.0); CO2, Blood 24 mmol/L (21-32); Calcium, Blood 8.2 mg/dL (8.5-10.1); Chloride, Blood 109 mmol/L (98-108); Creatinine, Blood 3.08 mg/dL (0.60-1.20); Glomerular Filtration Rate 23 (60-); Glucose, Blood 88 mg/dL (70-99); Magnesium, Blood 1.7 mg/dL (1.6-2.4); Phosphorus, Blood 4.1 mg/dL (2.5-4.9); Potassium, Blood 3.6 mmol/L (3.5-5.5); Sodium, Blood 144 mmol/L (136-145)
[2022-11-14 07:11] VITALS: BP 145/95
[2022-11-14 09:26] LABS: Hematocrit 40.2 % (37.0-53.0); Hemoglobin 12.5 g/dL (13.5-17.5); Mean Corpuscular HGB 27.3 pg (26.0-34.0); Mean Corpuscular HGB Conc 31.1 g/dL (31.5-36.5); Mean Corpuscular Volume 88 fL (80-100); Mean Platelet Volume 10.9 fL (9.1-12.4); Platelet Count 342 K/mm3 (150-400); RDW Coefficient Variation 17.2 % (11.7-14.2); RDW Standard Deviation 55.1 fL (35.1-46.3); Red Blood Cell Count 4.58 M/mm3 (4.30-5.90); White Blood Cell Count 17.16 K/mm3 (4.00-11.30)
--- NOTE | 2022-11-14 10:59 | NUR ---
Spiritual care visit conducted. Patient is sitting on a chair and alert. We talk about his long hospital stay and his mental and emotional status. We explore ways to stay grounded and at peace and the importance of focusing on the improvements and that he will d/c the hospital at some point soon. He longs to be home but continues to remain neutral with his feelings and emotions. I will be available if needed.
[2022-11-14] MEDS ORDERED: LEVOFLOXACIN750 MG PO (13:29)
[2022-11-14] MEDS ORDERED: DILT120ERA PO (13:29)
[2022-11-14] MEDS ORDERED: POTA10T PO (13:29)
[2022-11-14] MEDS ORDERED: Diflucan100 MG PO (13:30)
[2022-11-14] MEDS ORDERED: METR500 PO (13:30)
[2022-11-14] MEDS ORDERED: VISBIOME 112.51 EACH PO (13:30)
[2022-11-14] MEDS ORDERED: QUET25 PO (13:30)
--- NOTE | 2022-11-14 16:51 | NUR ---
PT DISCHARGED HOME. AOX4 AND COOPERATIVE OF CARE. TRACY SEAMAN APPLIED PER DR MCWILLIAMS ORDER PRIOR TO DISCHARGE. PT EDUCATED ON STOCKINGS AND VERBALIZED UNDERSTANDING.PAPERWORK AND EDCUATIONAL MATERIAL SENT WITH PT. ALL PERSONAL BELONGINGS COLLECTED AND RIDE WITH UCAN WAS ARRANGED. PT ESCORTED OUT TO [facility] VIA WHEELCHAIR.
--- NOTE | 2022-11-14 16:53 | NUR ---
PT EDUCATED ON IGNINTION ITEMS AND THE HAZARDS THEY POSE WITH ROOMS USING O2 AND THE HAZARDS THE POSE DURING HOURLY ROUNDING.
== END 2022-11-14 16:33 | disposition home health service (06) | DRG 871 ==
LOC: ER 18:05 → PCU 22:41 → MEDS 22:41 → PCU 23:07 → MEDS 11-05 18:20 → ENPENDDIS 11-14 11:52 → MEDS 11-14 16:33
PROVIDERS: Internal Medicine; Internal Medicine Nephrology; Student in an Organized Health Care Education/Training Program; ADMIT Internal Medicine
PROC: 3E03329 Introduction of Other Anti-infective into Peripheral Vein, Percutaneous Approach (ICD-10-PCS; principal; 2022-11-02)
PROC: 0W9G30Z Drainage of Peritoneal Cavity with Drainage Device, Percutaneous Approach (ICD-10-PCS; 2022-11-02)
DX: A41.9 Sepsis, unspecified organism (principal); K65.1 Peritoneal abscess; K57.20 Diverticulitis of large intestine with perforation and abscess without bleeding; N17.9 Acute kidney failure, unspecified; N18.4 Chronic kidney disease, stage 4 (severe); F23 Brief psychotic disorder; I12.9 Hypertensive chronic kidney disease with stage 1 through stage 4 chronic kidney disease, or unspecified chronic kidney disease; E78.5 Hyperlipidemia, unspecified; E83.42 Hypomagnesemia; E87.70 Fluid overload, unspecified; F03.A0 Unspecified dementia, mild, without behavioral disturbance, psychotic disturbance, mood disturbance, and anxiety; E87.6 Hypokalemia; D75.838 Other thrombocytosis; E66.9 Obesity, unspecified; D63.1 Anemia in chronic kidney disease; E88.09 Other disorders of plasma-protein metabolism, not elsewhere classified; Z79.899 Other long term (current) drug therapy; Z98.890 Other specified postprocedural states; Z79.890 Hormone replacement therapy; Z88.1 Allergy status to other antibiotic agents; Z88.8 Allergy status to other drugs, medicaments and biological substances; Z68.29 Body mass index [BMI] 29.0-29.9, adult
CPT/HCPCS: 36415; 49406; 74176; 74177; 80053; 80069; 81050; 82140; 82947; 83605; 83735; 84156; 85014; 85018; 85025; 85027; 85610; 85730; 86850; 86900; 86901; 87040; 87070; 87075; 87076; 87106; 87205; 93005; 93010; 96365; 96375; 97110; 97116; 97161; 97166; 97530; 97535; 99285-25; A9270; J0360; J1200; J1450; J1644; J1940; J1956; J2543; J3475; J7030; J7050; Q9963; Q9967

== ENCOUNTER 2023-09-04 13:46 | Emergency (ER) | payer OTHER ==
[~2023-09-04] VITALS: Ht 180.3 cm; Wt 90.7 kg
[2023-09-04 16:29] VITALS: BP 251/145
== END 2023-09-04 16:15 | disposition short-term general hospital (02) ==
LOC: ER 13:46
DX: I61.0 Nontraumatic intracerebral hemorrhage in hemisphere, subcortical (principal); I61.5 Nontraumatic intracerebral hemorrhage, intraventricular; I16.1 Hypertensive emergency; N18.9 Chronic kidney disease, unspecified; Z79.899 Other long term (current) drug therapy; Z88.1 Allergy status to other antibiotic agents; Z99.11 Dependence on respirator [ventilator] status